=== PATIENT | male | born 1975 | race Caucasian/White ===

== ENCOUNTER 2017-10-10 18:36 | Emergency (ER) | payer OTHER, MEDICAID ==
--- NOTE | 2017-10-10 18:41 | EDPHY ---
H & P Source: Patient Exam Limitations: No limitations - Medical/Surgical History Hx Asthma: No Hx Chronic Respiratory Disease: No Hx Diabetes: No Hx Cardiac Disease: No Hx Renal Disease: No Hx Cirrhosis: No Hx Alcoholism: No Hx HIV/AIDS: No Hx Splenectomy or Spleen Trauma: No Other PMH: Schizoeffective disorder - Social History Smoking Status: Heavy smoker Time Seen by Provider: 10/10/17 18:40 HPI/ROS: CHIEF COMPLAINT: Failure to thrive, psychiatric disease, questionable medical- compliance HISTORY OF PRESENT ILLNESS: The patient has a history of schizoaffective disorder and is brought into the emergency department on M1 psychiatric hold. The patient is disheveled, frail and disorganized. The patient is unable to provide significant history. He states he is on no prescription psychiatric medications and uses only medical marijuana for treatment of this condition. The patient denies any history of trauma. He denies fever, cough or congestion. The patient denies additional acute complaints. REVIEW OF SYSTEMS: A comprehensive 10 point review of systems is otherwise negative aside from elements mentioned in the history of present illness. (William Landry) - Physical Exam Exam: General Appearance: Thin, cachectic, disheveled Eyes: Pupils equal and round no pallor or injection ENT, Mouth: Mucous membranes moist Respiratory: There are no retractions, lungs are clear to auscultation Cardiovascular: Regular rate and rhythm Gastrointestinal: Abdomen is soft and nontender, no masses, bowel sounds normal Neurological: 5/5 strength all 4 extremities Skin: Warm and dry, no rashes Musculoskeletal: Neck is supple nontender Extremities: symmetrical, full range of motion Psychiatric: Patient is oriented X 3, delusional, disorganized (William Landry) Constitutional: Initial Vital Signs Temperature (C) 37.2 C 10/10/17 18:55 Heart Rate 112 H 10/10/17 18:55 Respiratory Rate 16 10/10/17 18:55 Blood Pressure 159/131 H 10/10/17 18:55 O2 Sat (%) 95 10/10/17 18:55 O2 Delivery Mode Room Air Allergies/Adverse Reactions: No Known Allergies Allergy (Verified 02/11/15 21:43) Home Medications: Medication Instructions Recorded OLANZapine [Zyprexa Zydis] 60 mg PO DAILY@0700 02/12/15 Amoxicillin [Amoxil Susp (*)] 500 mg PO Q8 #1 btl 02/15/15 Bacitracin Zinc [Bacitracin 1 john TP BID #1 oint 02/15/15 Ointment Tube] Hydrocod/APAP 7.5/325 in 15Ml 15 ml PO Q4 PRN 7 Days udcup 02/15/15 [Hycet Oral Liquid (*) 7.5MG-325MG/15ML] Medical Decision Making ED Course/Re-evaluation: The patient presents to the ED with delusional disorganized thoughts in the setting of known schizoaffective disorder and likely not being on any current prescription medications. The patient was somewhat aggressive and agitated. He did received 5 mg of oral Zyprexa. Screening laboratory studies have been sent. (William Landry) I took over care of this patient at 7:00 a.m.. This patient has a history of schizoaffective disorder. He is acutely delusional. He is currently on an M1 hold. He is to be admitted. Destination for admission pending at this time. 8:20 a.m., patient accepted for transfer to [facility] under the care of psychiatrist Dr. Xavier Bustamante. I have filled out the appropriate transfer paperwork. The patient's remaining emergency department course under my care has been uneventful. He was transferred in stable condition. (Jose White) Other Provider: 10/10/17 22:30 care assumed by me from Dr. Landry pending mental health evaluation. 0400 patient has been seen by the mental health dandy tender. They feel that he is suitable for inpatient placement. They will look for a suitable facility. 0700 patient signed out to Dr. White pending placement. He has been resting comfortably. I have had no issues with care this patient overnight. ( Rene Ervin) - Data Points Laboratory Results: Laboratory Results 10/10/17 19:12 10/10/17 18:50 10/11/17 00:58 Urine Opiates Screen NEGATIVE (NEGATIVE) Urine Barbiturates NEGATIVE (NEGATIVE) Ur Phencyclidine Scrn NEGATIVE (NEGATIVE) Ur Amphetamine Screen NEGATIVE (NEGATIVE) U Benzodiazepines Scrn NEGATIVE (NEGATIVE) Urine Cocaine Screen NEGATIVE (NEGATIVE) U Marijuana (THC) Screen NON-NEGATIVE H (NEGATIVE) Medications Given: Discontinued Medications Sodium Chloride (Ns) 1,000 mls @ 0 mls/hr IV EDNOW ONE; Wide Open PRN Reason: Protocol Stop: 10/10/17 22:31 Last Admin: 10/10/17 22:55 Dose: 1,000 mls Sodium Chloride (Ns) 1,000 mls @ 0 mls/hr IV ONCE ONE PRN Reason: Wide Open Stop: 10/10/17 23:53 Last Admin: 10/10/17 23:52 Dose: 1,000 mls Olanzapine (Zyprexa Zydis) 5 mg PO EDNOW ONE Stop: 10/10/17 19:13 Last Admin: 10/10/17 19:28 Dose: 5 mg Departure - Departure Disposition: Other Psych, Not Shay Clinical Impression: Schizoaffective disorder, Delusional disorder Referrals: Hector Romero MD [Primary Care Provider] - As per Instructions
[2017-10-10] MEDS ORDERED: OLANZapine DISINTEGR 5 MG TAB PO ONE (19:12)
[2017-10-10 19:32] LABS: PLATELET COUNT 272 10^3/uL (150-400)
[2017-10-10] MEDS ORDERED: NS 1,000 ML IV ONE ×2 (22:30→23:52)
[2017-10-11 11:10] VITALS: BP 99/60
== END 2017-10-11 11:09 ==
LOC: EEVIPCON 18:36
DX: F25.9 Schizoaffective disorder, unspecified (principal); F22 Delusional disorders; F17.200 Nicotine dependence, unspecified, uncomplicated; E86.9 Volume depletion, unspecified
CPT/HCPCS: 80305; G0480

== ENCOUNTER 2017-11-08 18:39 | Emergency (ER) | payer OTHER ==
--- NOTE | 2017-11-08 18:49 | EDPHY ---
H & P Source: Patient, Police Exam Limitations: Clinical condition - Medical/Surgical History Hx Asthma: No Hx Chronic Respiratory Disease: No Hx Diabetes: No Hx Cardiac Disease: No Hx Renal Disease: No Hx Cirrhosis: No Hx Alcoholism: No Hx HIV/AIDS: No Hx Splenectomy or Spleen Trauma: No Other PMH: Schizoeffective disorder - Family History Significant Family History: No pertinent family hx - Social History Smoking Status: Heavy smoker Alcohol Use: Sober Drug Use: None Time Seen by Provider: 11/08/17 18:42 HPI/ROS: CHIEF COMPLAINT: Gravely disabled HISTORY OF PRESENT ILLNESS: Patient is a 42-year-old man who police were called for a wellness check. He is extremely disheveled and foul smelling. He has a history of schizophrenia and is not taking his medications. They had mental health evaluate him and placed him on a hold. He is delusional and hallucinating. He is cooperative and answers most questions appropriately. He denies pain or injury. He denies recent fevers or illness. He presented in a similar fashion 1 month ago and was admitted to [facility] psychiatric unit at that time. REVIEW OF SYSTEMS: Constitutional: denies: chills, fever, recent illness, recent injury EENTM: denies: blurred vision, double vision, nose congestion Respiratory: denies: cough, shortness of breath Cardiac: denies: chest pain, irregular heart rate, lightheadedness, palpitations Gastrointestinal/Abdominal: denies: abdominal pain, diarrhea, nausea, vomiting, blood streaked stools Genitourinary: denies: dysuria, frequency, hematuria, pain Musculoskeletal: denies: joint pain, muscle pain Skin: denies: lesions, rash, jaundice, bruising Neurological: denies: headache, numbness, paresthesia, tingling, dizziness, weakness Hematologic/Lymphatic: denies: blood clots, easy bleeding, easy bruising Immunologic/allergic: denies: HIV/AIDS, transplant EXAM: GENERAL: Extremely disheveled, no acute distress, thin HEAD: Atraumatic, normocephalic. EYES: Pupils equal round and reactive to light, extraocular movements intact, sclera anicteric, conjunctiva are normal. ENT: Cyst to left cheek which she states has been there for several years, nontender, not erythematous. TMs normal, nares patent, oropharynx clear without exudates. Moist mucous membranes. NECK: Normal range of motion, supple without lymphadenopathy or JVD. LUNGS: Breath sounds clear to auscultation bilaterally and equal. No wheezes rales or rhonchi. HEART: Regular rate and rhythm without murmurs, rubs or gallops. ABDOMEN: Soft, nontender, normoactive bowel sounds. No guarding, no rebound. No masses appreciated. BACK: No CVA tenderness, no spinal tenderness, step-offs or deformities EXTREMITIES: Normal range of motion, no pitting or edema. No clubbing or cyanosis. NEUROLOGICAL: Cranial nerves II through XII grossly intact. Normal speech, normal gait. 5/5 strength, normal movement in all extremities, normal sensation PSYCH: Answers questions appropriately, SKIN: Warm, dry, normal turgor, no visible rashes or lesions. (Lexx Choudhury) Constitutional: Initial Vital Signs Temperature (C) 36.7 C 11/08/17 18:50 Heart Rate 88 11/08/17 18:50 Respiratory Rate 18 11/08/17 18:50 Blood Pressure 118/88 H 11/08/17 18:50 O2 Sat (%) 96 11/08/17 18:50 O2 Delivery Mode Room Air O2 (L/minute) 97 Allergies/Adverse Reactions: No Known Allergies Allergy (Verified 11/08/17 19:52) Home Medications: Medication Instructions Recorded OLANZapine [Zyprexa Zydis] 60 mg PO DAILY@0700 02/12/15 Amoxicillin [Amoxil Susp (*)] 500 mg PO Q8 #1 btl 02/15/15 Bacitracin Zinc [Bacitracin 1 john TP BID #1 oint 02/15/15 Ointment Tube] Hydrocod/APAP 7.5/325 in 15Ml 15 ml PO Q4 PRN 7 Days udcup 02/15/15 [Hycet Oral Liquid (*) 7.5MG-325MG/15ML] Medical Decision Making ED Course/Re-evaluation: 2300: Patient been evaluated by mental health. They would like to seek inpatient placement. Will perform bed search at this time for inpatient psychiatric hospitalization. (Jarret Nicholas) Differential Diagnosis: Partial list of the Differential diagnosis considered include but were not limited to; schizophrenia, substance abuse and although unlikely based on the history and physical exam, I also considered head injury, infection. (Lexx Choudhury) Other Provider: [address] Nicholas pending placement. (Rene Ervin) - Data Points Laboratory Results: Laboratory Results 11/08/17 19:54 11/08/17 19:54 Medications Given: Discontinued Medications Nicotine (Nicoderm Cq) 21 mg TD EDNOW ONE Stop: 11/09/17 01:40 Last Admin: 11/09/17 02:08 Dose: Not Given Departure - Departure Disposition: Other Psych, Not Shay Clinical Impression: Acute psychosis, Polysubstance abuse Condition: Fair Referrals: Hector Romero MD [Primary Care Provider] - As per Instructions
[2017-11-08 20:10] LABS: PLATELET COUNT 348 10^3/uL (150-400)
[2017-11-09] MEDS ORDERED: NICOTINE 21 MG/24 HR PATCH TD ONE (01:39)
[2017-11-09 14:46] VITALS: BP 105/69
== END 2017-11-09 14:46 ==
LOC: EEVIPCON 18:39
DX: F23 Brief psychotic disorder (principal); F19.10 Other psychoactive substance abuse, uncomplicated; F17.200 Nicotine dependence, unspecified, uncomplicated
CPT/HCPCS: 80305; G0480

== ENCOUNTER 2018-01-26 15:09 | Inpatient (IN) | payer OTHER, MEDICAID ==
--- NOTE | 2018-01-26 15:19 | EDPHY ---
H & P Time Seen by Provider: 01/26/18 15:14 HPI/ROS: CHIEF COMPLAINT: Court-ordered mental health evaluation HISTORY OF PRESENT ILLNESS: 42-year-old male arrives with law enforcement for court-ordered mental health evaluation. History of schizoaffective disorder bipolar type, history of cannabis use disorder, history of non adherence to medication treatment plan. He denies suicidal homicidal ideation. He has no complaints of pain or discomfort. Denies trauma. Denies hallucination. REVIEW OF SYSTEMS: 10 systems reviewed and negative with the exception of the elements mentioned in the history of present illness PAST MEDICAL & SURGICAL HISTORY: Schizoaffective disorder. Cannabis use disorder SOCIAL HISTORY:Chronic cannabis use PHYSICAL EXAM (Prior to examination, patient consented to physical exam, hands were washed and my usual and customary physical exam procedures followed) 1) GENERAL: poorly kept, alert and oriented. Appears to be in no acute distress. 2) HEAD: Normocephalic, atraumatic 3) HEENT: Pupils equal, round, reactive to light bilaterally. Sclera anicteric. 4) NECK: Full range of motion, no meningeal signs. 5) LUNGS: Clear auscultation bilaterally, no wheezes, no rhonchi, no retractions. 6) HEART: Regular rate and rhythm, no murmur, no heave, no gallop. 7) ABDOMEN: No guarding, no rebound, no focal tenderness,, 8) MUSCULOSKELETAL: No peripheral edema or discoloration. 9) BACK: No obvious trauma, no visual or palpable abnormality. 10) SKIN: No rash, no petechiae. 11) Psychiatric: Patient is oriented X 3, there is no agitation. DIFFERENTIAL DIAGNOSIS: In no particular order including but not limited to medication noncompliance, schizoaffective disorder, suicidal ideation, homicidal ideation - Medical/Surgical History Hx Asthma: No Hx Chronic Respiratory Disease: No Hx Diabetes: No Hx Cardiac Disease: No Hx Renal Disease: No Hx Cirrhosis: No Hx Alcoholism: No Hx HIV/AIDS: No Hx Splenectomy or Spleen Trauma: No Other PMH: Schizoaffective disorder, hx of jaw fx - Social History Smoking Status: Heavy smoker Constitutional: Initial Vital Signs Temperature (C) 36.8 C 01/26/18 15:09 Heart Rate 76 09/19/18 15:09 Respiratory Rate 16 01/26/18 15:09 Blood Pressure 130/80 H 01/26/18 15:09 O2 Sat (%) 92 01/26/18 15:09 O2 Delivery Mode Room Air Allergies/Adverse Reactions: No Known Allergies Allergy (Verified 12/13/17 16:38) Home Medications: Medication Instructions Recorded Divalproex ER [Depakote ER 500 MG 1,500 mg PO DAILY 30 Days #90 tab 01/13/18 (*)] Medical Decision Making ED Course/Re-evaluation: 3:18 p.m.: I reviewed the patient's old medical records. He is currently on an M1 hold. I saw this patient independently based on established practice protocols. Care of patient under supervision of secondary supervising physician Dr Allan . 4:08 p.m.: Patient's sodium noted to be 123, down from level of 141 approximately 2 weeks ago. Upon speaking to the patient further he states that he drinks approximately 1-2 gal of water per day. He has not received IV fluids in the E R. Fluid restriction precautions in place in the patient's room. He is not medically cleared for psychiatric evaluation at this time will plan on admission to hospitalist service, ICU under Dr. Bryn Shepherd. Discussed with Dr. Cezar Allan. 4:16 p.m.: Consultation with Dr. Bryn Shepherd who will admit patient, request patient be started on D5 1/2 normal saline at 75 cc and have repeat sodium in 2 hours after initiation - Data Points Laboratory Results: Laboratory Results 01/26/18 15:18 01/26/18 15:18 01/26/18 01/26/18 01/26/18 15:50 15:18 15:18 WBC 10.50 10^3/uL H 10^3/uL (3.80-9.50) RBC 3.99 10^6/uL L 10^6/uL (4.40-6.38) Hgb 12.8 g/dL L g/dL (13.7-17.5) Hct 36.0 % L % (40.0-51.0) MCV 90.2 fL fL (81.5-99.8) MCH 32.1 pg pg (27.9-34.1) MCHC 35.6 g/dL g/dL (32.4-36.7) RDW 13.7 % % (11.5-15.2) Plt Count 266 10^3/uL 10^3/uL (150-400) MPV 8.0 fL L fL (8.7-11.7) Neut % (Auto) 56.0 % % (39.3-74.2) Lymph % (Auto) 33.7 % % (15.0-45.0) [place] % (Auto) 8.8 % % (4.5-13.0) Eos % (Auto) 0.1 % L % (0.6-7.6) Baso % (Auto) 0.3 % % (0.3-1.7) Nucleat RBC Rel Count 0.0 % % (0.0-0.2) Absolute Neuts (auto) 5.88 10^3/uL 10^3/uL (1.70-6.50) Absolute Lymphs (auto) 3.54 10^3/uL H 10^3/uL (1.00-3.00) Absolute Monos (auto) 0.92 10^3/uL H 10^3/uL (0.30-0.80) Absolute Eos (auto) 0.01 10^3/uL L 10^3/uL (0.03-0.40) Absolute Basos (auto) 0.03 10^3/uL 10^3/uL (0.02-0.10) Absolute Nucleated RBC 0.00 10^3/uL 10^3/uL (0-0.01) Immature Gran % 1.1 % % (0.0-1.1) Immature Gran # 0.12 10^3/uL H 10^3/uL (0.00-0.10) Sodium 123 mEq/L L mEq/L (135-145) Potassium 4.0 mEq/L mEq/L (3.3-5.0) Chloride 85 mEq/L L mEq/L (97-110) Carbon Dioxide 25 mEq/l mEq/l (22-31) Anion Gap 13 mEq/L mEq/L (8-16) BUN 8 mg/dL mg/dL (7-23) Creatinine 0.6 mg/dL L mg/dL (0.7-1.3) Estimated GFR > 60 Glucose 118 mg/dL H mg/dL (70-100) Calcium 9.2 mg/dL mg/dL (8.5-10.4) Salicylates < 1.0 mg/dL L mg/dL (2.0-20.0) Urine Opiates Screen NEGATIVE (NEGATIVE) Acetaminophen < 10 mcg/mL L mcg/mL (10-30) Urine Barbiturates NEGATIVE (NEGATIVE) Valproic Acid < 10.0 mcg/mL L mcg/mL (50.0-150.0) Ur Phencyclidine Scrn NEGATIVE (NEGATIVE) Ur Amphetamine Screen NEGATIVE (NEGATIVE) U Benzodiazepines Scrn NEGATIVE (NEGATIVE) Urine Cocaine Screen NEGATIVE (NEGATIVE) U Marijuana (THC) Screen NON-NEGATIVE H (NEGATIVE) Ethyl Alcohol < 10 mg/dL mg/dL (0-10) Departure - Departure Disposition: [facility] Clinical Impression: Nonadherence to medication, Hyponatremia Schizoaffective disorder Qualifiers: Schizoaffective disorder type: bipolar Qualified Code(s): F25.0 - Schizoaffective disorder, bipolar type Referrals: NONE *PRIMARY CARE P,. [Primary Care Provider] - As per Instructions
[2018-01-26 15:34] LABS: PLATELET COUNT 266 10^3/uL (150-400)
[2018-01-26] MEDS ORDERED: ACETAMINOPHEN 325 MG TAB PO PRN (16:58)
[2018-01-26] MEDS ORDERED: ONDANSETRON DISINTEGRATING 4 MG TAB PO PRN (16:58)
[2018-01-26] MEDS ORDERED: ONDANSETRON 4 MG/2 ML VIAL IVP PRN (16:58)
[2018-01-26] MEDS ORDERED: LORazepam 2 MG/ML INJ IVP PRN (17:00)
--- NOTE | 2018-01-26 18:03 | GHP ---
DATE OF ADMISSION: 01/26/2018 HISTORY OF PRESENT ILLNESS: The patient is a 42-year-old gentleman with history of schizophrenia and previous episodes of hyponatremia who presents to the ER on an M1 hold for court-ordered medication. Initial evaluation reveals an alert patient whose sodium was found to be 123. Our last value 10 da ys ago was 141. The patient endorses drinking a fair amount of water. He is asking to go to [employer] to get some of their sea salt. He says he drinks a fair amount of cold tap water. He does not take diuretics. He does not have a history of heart failure or cirrhosis. He is not jaundiced. He is n ot having fever, chills, cough, sputum, nausea, vomiting, diarrhea. REVIEW OF SYSTEMS: Complete 10-point review of systems conducted, negative, except as noted in the H PI. PAST MEDICAL HISTORY: 1. Schizoaffective disorder. 2. Cannabis use disorder. 3. Bipolar disorder. 4. History of mandibular fractures. SOCIAL HISTORY: He lives on [address] in [place]. He is single. He is not homeless. Drinks alcohol occasionally. Daily tobacco, smells of tobacco. FAMILY HISTORY: Reviewed and unremarkable. PHYSICAL EXAMINATION: VITAL SIGNS: Temp 36.8, blood pressure 130/80, pulse 76, breathing 16 times a minute, 92% on room air. GENERAL: In no acute distress. HEENT: Sclerae anicteric. Oropharynx cl ear. Mucous membranes moist. NECK: Supple without lymphadenopathy or JVD. LUNGS: Clear to auscul tation bilaterally. HEART: S1, S2. ABDOMEN: Soft, nontender, nondistended. LOWER EXTREMITIES: W ithout edema. Calves nontender. SKIN: Without rash. NEUROLOGIC: Nonfocal. PSYCHIATRIC: The pat ient is conversant. He has poor grooming. Smells of tobacco. His feet are dirty. I discussed the case . LABORATORY DATA: Sodium 123, potassium 4, chloride 85, bicarb 25, BUN 13, creatinine 0.6, glucose is 118. White count 10.5, hematocrit 36, platelets are 266,000. ASSESSMENT/PLAN: 42-year-old gentleman with hyponatremia. 1. Hyponatremia. This is almost certainly water intoxication. Patient is currently in the psych ro om without access to water. Typically, these patients rise rather rapidly once their access to water is diminished. I will start some hypotonic fluids at half-normal saline at 75 an hour x1 L. I will follow his sodium q.3. if his sodium does not rise immediately, we will send some urine studies. Jose whitaker is euvolemic. 2. Schizoaffective disorder. I will continue his medicines. I have written him for some p.r.nRenetta goetz. 3. Tobacco use. I will write him for nicotine patch. 4. Prophylaxis. The patient is low risk. DISPOSITION: Inpatient status. /[id number]/MODL
[2018-01-26] MEDS: NICOTINE 21 MG/24 HR PATCH TD SCH (20:06)
[2018-01-26] MEDS: D5W 1/2 NS 1,000 ML IV SCH (20:26)
[2018-01-27] MEDS ORDERED: DESMOPRESSIN ACETATE 4 MCG/ML INJ SC ONE (02:18)
--- NOTE | 2018-01-27 02:22 | HOSPPROG ---
Hospitalist Progress Note Assessment/Plan: XC: Na 126>130 at start of my shift. I encouraged patient to drink free water, of which he drank about 500 mLs. Despite this, Na to 135 on next check. This represents 12 mEq increase over 9 hour period, which is significantly beyond goal. I will order DDAVP 2 mcg SQ and start hypotonic saline infusion at 75 mls/ hr. Will continue q4h checks. Objective: Vital Signs Temp Pulse Resp BP Pulse Ox 36.4 C 53 L 16 121/78 H 96 01/26/18 22:00 01/27/18 02:00 01/27/18 02:00 01/27/18 02:00 01/27/18 02:00 Laboratory Results 01/27/18 00:55 01/25/18 01/26/18 01/27/18 05:59 05:59 05:59 Intake Total 300 Balance 300 ICD10 Worksheet Patient Problems: Problems Problem Status Onset Hyponatremia Acute Nonadherence to medication Acute Schizoaffective disorder Acute Cannabis use disorder, severe, in controlled environment Acute Cannabis withdrawal Acute Patient non adherence Acute Schizoaffective disorder, bipolar type Chronic
[2018-01-27] MEDS ORDERED: D5W 1/2 NS 1,000 ML IV SCH (02:30)
[2018-01-27] MEDS: D5W 1/2 NS 1,000 ML IV SCH (02:38)
--- NOTE | 2018-01-27 05:58 | PDMN ---
Medical Necessity Medical necessity: Pt meets INPT criteria per MD as of 01/26/18 and MCG Systemic or Infectious Condition GRG (est. LOS >2 MN for eval/mgmt of hyponatremia - sodium 123; requiring IVF, DDAVP, q4hr checks; hx schizophrenia, on M1 hold for court-ordered medication).
[2018-01-27] MEDS: NICOTINE 21 MG/24 HR PATCH TD SCH (07:49)
[2018-01-27] MEDS ORDERED: DIVALPROEX ER 500 MG TAB PO SCH (09:00)
[2018-01-27] MEDS ORDERED: PALIPERIDONE 9 MG TAB.ER PO SCH (09:00)
--- NOTE | 2018-01-27 11:45 | HOSPPROG ---
Hospitalist Progress Note Assessment/Plan: 42 YO male with hx of Schizophrenia and Bipolar who was per reports was brought into the ER for violation of court ordered medication administration and found to have a Na of 123. He is not the best historian #Hyponatremia -appears sub acute -Etiology is likely due to water intoxication -Corrected very quickly and therefore 1/2 NS and DDAVP was given -this morning Na is 136 and 131 -will stop 1/2NS today and recheck Na in a few hours -Anticipate that he will be medically stable today #Schizophrenia, Bipolar, and court ordered medication with reported violation of order -CM to clarify court order -He is not actively on an M1 hold and we will determine if he needs one -on Depakote and Invega #Cannabis use disorder #tobacco abuse disorder -on NRT Total critical care time is 32 mins due to significant hyponatremia and accelerated correction. Monitoring Na levels closely. Anticipate medical stable this afternoon pending Na stabilization Subjective: not the best historian but no focal neurological deficits. no cp or sob. afebrile Objective: Vital Signs Temp Pulse Resp BP Pulse Ox 37.9 C 54 L 19 113/73 95 01/27/18 07:34 01/27/18 10:00 01/27/18 10:00 01/27/18 07:34 01/27/18 10:00 Laboratory Results 01/27/18 09:21 01/26/18 01/27/18 01/28/18 05:59 05:59 05:59 Intake Total 950 Balance 950 - Physical Exam Constitutional: no apparent distress Eyes: PERRL Ears, Nose, Mouth, Throat: moist mucous membranes, hearing normal Cardiovascular: regular rate and rhythym Respiratory: no respiratory distress Gastrointestinal: normoactive bowel sounds, soft, non-tender abdomen Genitourinary: no bladder fullness Skin: warm Neurologic: AAOx3 Psychiatric: interacting appropriately, not anxious, not encephalopathic Lymph, Heme, Immunologic: no cervical LAD ICD10 Worksheet Patient Problems: Problems Problem Status Onset Hyponatremia Acute Nonadherence to medication Acute Schizoaffective disorder Acute Cannabis use disorder, severe, in controlled environment Acute Cannabis withdrawal Acute Patient non adherence Acute Schizoaffective disorder, bipolar type Chronic
[2018-01-27 15:35] VITALS: BP 122/74
== END 2018-01-27 21:27 | disposition left against medical advice (07) | DRG 641 ==
LOC: OBSVTOIN 16:11 → F2N 20:30
PROVIDERS: ADMIT Internal Medicine; ATTEND Internal Medicine
DX: E87.1 Hypo-osmolality and hyponatremia (principal); F25.0 Schizoaffective disorder, bipolar type; F12.90 Cannabis use, unspecified, uncomplicated
CPT/HCPCS: 80305; G0480; J2597

== ENCOUNTER 2018-03-21 17:05 | Emergency (ER) | payer OTHER, MEDICAID ==
--- NOTE | 2018-03-21 17:19 | EDPHY ---
H & P Source: Patient Exam Limitations: No limitations - Medical/Surgical History Hx Asthma: No Hx Chronic Respiratory Disease: No Hx Diabetes: No Hx Cardiac Disease: No Hx Renal Disease: No Hx Cirrhosis: No Hx Alcoholism: No Hx HIV/AIDS: No Hx Splenectomy or Spleen Trauma: No Other PMH: Schizoaffective disorder, hyponatremia, malnutrition - Family History Significant Family History: No pertinent family hx - Social History Smoking Status: Heavy smoker Alcohol Use: Sober Time Seen by Provider: 03/21/18 17:08 HPI/ROS: CHIEF COMPLAINT: M1 hold HISTORY OF PRESENT ILLNESS: The patient is a 42-year-old man with a history of schizoaffective disorder who is a patient of [facility]. His therapist called for a well check because the patient had missed several appointments. The food chemist found his department completely in disarray and the patient is disheveled is starving himself. He has a history of not eating because he is paranoid about food. She called police and placed him on a hold and brought him here for gravely disabled. The patient reports to me that he is not taking any medication. He denies recent alcohol use. He did smoke marijuana today. He was here under similar conditions a month ago and was found to be hyponatremic and admit to the hospital and eventually left AMA. Severity: Moderate Modifying factors: None REVIEW OF SYSTEMS: Constitutional: denies: chills, fever, recent illness, recent injury EENTM: denies: blurred vision, double vision, nose congestion Respiratory: denies: cough, shortness of breath Cardiac: denies: chest pain, irregular heart rate, lightheadedness, palpitations Gastrointestinal/Abdominal: denies: abdominal pain, diarrhea, nausea, vomiting, blood streaked stools Genitourinary: denies: dysuria, frequency, hematuria, pain Musculoskeletal: denies: joint pain, muscle pain Skin: denies: lesions, rash, jaundice, bruising Neurological: denies: headache, numbness, paresthesia, tingling, dizziness, weakness Hematologic/Lymphatic: denies: blood clots, easy bleeding, easy bruising Immunologic/allergic: denies: HIV/AIDS, transplant 10 systems reviewed and negative except as noted EXAM: GENERAL: Disheveled, thin, taking office clothing HEAD: Atraumatic, normocephalic. EYES: Pupils equal round and reactive to light, extraocular movements intact, sclera anicteric, conjunctiva are normal. ENT: TMs normal, nares patent, oropharynx clear without exudates. Moist mucous membranes. NECK: Normal range of motion, supple without lymphadenopathy or JVD. LUNGS: Breath sounds clear to auscultation bilaterally and equal. No wheezes rales or rhonchi. HEART: Regular rate and rhythm without murmurs, rubs or gallops. ABDOMEN: Soft, nontender, normoactive bowel sounds. No guarding, no rebound. No masses appreciated. BACK: No CVA tenderness, no spinal tenderness, step-offs or deformities EXTREMITIES: Normal range of motion, no pitting or edema. No clubbing or cyanosis. NEUROLOGICAL: Cranial nerves II through XII grossly intact. Normal speech, normal gait. 5/5 strength, normal movement in all extremities, normal sensation , normal reflexes PSYCH: Answers questions appropriately, normal affect SKIN: Warm, dry, normal turgor, no visible rashes or lesions. (Lexx Choudhury) Constitutional: Initial Vital Signs Temperature (C) 36.4 C 03/21/18 17:13 Heart Rate 126 H 03/21/18 17:13 Respiratory Rate 18 03/21/18 17:13 Blood Pressure 128/76 H 03/21/18 17:13 O2 Sat (%) 95 03/21/18 17:13 O2 Delivery Mode Room Air Allergies/Adverse Reactions: No Known Allergies Allergy (Verified 12/13/17 16:38) Home Medications: Medication Instructions Recorded Divalproex ER [Depakote ER 500 MG 1,500 mg PO DAILY 30 Days #90 tab 01/13/18 (*)] Paliperidone [Invega 9mg ER (*)] 9 mg PO DAILY 01/26/18 Medical Decision Making ED Course/Re-evaluation: 6:18 a.m.- The patient has been stable throughout my shift. He was seen by Xavier the psychiatric food chemist this morning. He has been accepted to [facility] by Dr. Ana Laura Basurto. I have completed the EMTALA form. (Jaqui Ac) 10:30 p.m. mental health this planning to evaluate. Patient has not yet provided a urine sample. Care transferred to Dr. Ac at shift change. He is not hyponatremic. (Lexx Choudhury) Differential Diagnosis: Partial list of the Differential diagnosis considered include but were not limited to; psychosis, hallucinations, paranoia, depression and although unlikely based on the history and physical exam, I also considered substance abuse, infection, hyponatremia. (Lexx Choudhury) - Data Points Laboratory Results: Laboratory Results 03/21/18 17:10 03/21/18 17:10 Departure - Departure Disposition: Other Psych, Not [facility] Clinical Impression: Schizoaffective disorder, bipolar type Condition: Fair Referrals: NONE *PRIMARY CARE P,. [Primary Care Provider] - As per Instructions
[2018-03-21 18:00] LABS: PLATELET COUNT 333 10^3/uL (150-400)
--- NOTE | 2018-03-22 06:23 | ASMTTCLDSP ---
[facility] Discharge Disposition Disposition: Answers: Transfer Disposition Notes: Notes: [facility] staff secured placement arrangements for pt to be transferred to [facility] under Dr. Ana Laura Basurto. Discharge Concerns/Recommendations: Notes: In consultation with [facility] ED physician, Jaqui Ac MD, Dr. Ac concurred that pt appears to meet 27-65 criteria requiring psychiatric hospitalization as pt appears to be gravely disabled due to a mental illness conditiion. Was patient given the Answers: Not applicable Inpatient [facility] Prohibited Belongings List while in the ED? Type of Hold: Answers: M1/72-hour Hold Hold initiated by: Answers: Other Notes: [facility] staff For Transfers, Accepting [facility] Facility: For Transfers, Accepting Ana Laura Basurto MD Psychiatrist: For Transfers, Reason [facility] arranged for transfer. Patient is Being Transferred: Date Signed: 03/22/2018 06:23 AM Electronically Signed By:Jamal Carballo
[2018-03-22 07:19] VITALS: BP 98/62
== END 2018-03-22 09:05 ==
DX: F20.0 Paranoid schizophrenia (principal); E44.0 Moderate protein-calorie malnutrition
CPT/HCPCS: 80305; G0480

== ENCOUNTER 2018-08-19 14:11 | Inpatient (IN) | payer OTHER ==
--- NOTE | 2018-08-19 14:11 | EDPHY ---
H & P Time Seen by Provider: 08/19/18 14:27 Constitutional: Initial Vital Signs Temperature (C) 36.5 C 08/19/18 14:15 Heart Rate 98 08/19/18 14:15 Respiratory Rate 18 08/19/18 14:15 Blood Pressure 164/96 H 08/19/18 14:15 O2 Sat (%) 97 08/19/18 14:15 O2 Delivery Mode Room Air Allergies/Adverse Reactions: No Known Allergies Allergy (Verified 08/19/18 14:38) Home Medications: Medication Instructions Recorded Divalproex ER [Depakote ER 500 MG 1,500 mg PO DAILY 30 Days #90 tab 01/13/18 (*)] Paliperidone [Invega 9mg ER (*)] 9 mg PO DAILY 01/26/18 Medical Decision Making ED Course/Re-evaluation: CHIEF COMPLAINT: Psychiatric evaluation HISTORY OF PRESENT ILLNESS: The patient is a 43 y/o male with a history of schizoaffective disorder, arriving via EMS on an M1 hold for schizophrenia. Per EMS and BPD the patient has disorganized thought and states he is unsure if he ate today or paid his rent. He reports he hasn't showered since March. He denies taking his medications. He has aggressive language and speaks about guns often. No homicidal or suicidal ideations. REVIEW OF SYSTEMS: A comprehensive 10 system review of systems is otherwise negative aside from elements mentioned in the history of present illness and medical decision making. PHYSICAL EXAM: General Appearance: Alert, well hydrated, and non-toxic appearing. Head: Atraumatic without scalp tenderness or obvious injury Eyes: Pupils equal, round, reactive to light and accommodation, EOMI, no trauma , no injection. Ears: Clear bilaterally, no perforation, normal landmarks Nose: Atraumatic, no rhinorrhea, clear. Throat: There is no erythema or exudates, no lesions, normal tonsils, mucus membranes moist. Neck: Supple, 2+ carotid upstroke, nontender, no lymphadenopathy. Respiratory: No retractions, no distress, no wheezes, and no accessory muscle use. Lungs are clear to auscultation bilaterally. Cardiovascular: Regular rate and rhythm, no murmurs, rubs, or gallops. Bilateral carotid, radial, dorsalis pedis, and posterior tibial pulses intact. Good capillary refill all extremities. Gastrointestinal: Abdomen is soft, nontender, non-distended, no masses, no rebound, no guarding, no peritoneal signs. Musculoskeletal: Normal active ROM of all extremities, atraumatic. Neurological: Alert, appropriate, and interactive. The patient has normal DTRs and non-focal cranial nerves, motor, sensory, and cerebellar exam. Skin: No rashes, good turgor, no nodules on palpation. Psych: Angry and sarcastic attitude, illogical though, over-talkative, thinks people are watching and has ideas of grandeur. No homicidal or suicidal ideations. Past medical history: Schizoaffective disorder Past surgical history: Unknown Family history: Unknown Social history: Singe, not employed, lives is [place]. DIFFERENTIAL DIAGNOSIS: The differential diagnosis for the patient's psychosis included but was not limited to schizoaffective disorder, functional and major depression, situational depression, medication side effect, drugs, and alcohol abuse. MEDICAL DECISION MAKING: The patient is a 43 y/o male with a history of schizoaffective disorder, arriving via EMS on an M1 hold for schizophrenia. Per EMS and BPD the patient has disorganized thought and states he is unsure if he ate today or paid his rent. He reports he hasn't showered since March. He thinks that people are watching him and has ideas or grandeur. He denies homicidal or suicidal ideations. He agrees to having a blood draw today. Patient is in no acute distress and is hemodynamically stable. We are awaiting psychiatric team's evaluation. Patient has known history of psychiatric disorders and is here for evaluation. 1500: Patient care has been turned over to Dr. Garcia at shift change. Mental health eval pending. (Cezar Allan) 1300: I assumed care of this patient at shift change. He has a history of schizophrenia and is on an M1 hold for acute psychosis. Evaluation pending. 1819: increased agitation. Zyprexa 10mg IM given. 2114: Accepted to [facility], EMTALA completed. (Melanie Garcia) - Data Points Laboratory Results: Laboratory Results 08/19/18 14:56 08/19/18 14:56 08/19/18 08/19/18 08/19/18 14:56 14:56 14:22 WBC 13.53 10^3/uL H 10^3/uL (3.80-9.50) RBC 4.62 10^6/uL 10^6/uL (4.40-6.38) Hgb 14.7 g/dL g/dL (13.7-17.5) Hct 42.6 % % (40.0-51.0) MCV 92.2 fL fL (81.5-99.8) MCH 31.8 pg pg (27.9-34.1) MCHC 34.5 g/dL g/dL (32.4-36.7) RDW 13.7 % % (11.5-15.2) Plt Count 275 10^3/uL 10^3/uL (150-400) MPV 8.1 fL L fL (8.7-11.7) Neut % (Auto) 75.5 % H % (39.3-74.2) Lymph % (Auto) 16.6 % % (15.0-45.0) [place] % (Auto) 7.2 % % (4.5-13.0) Eos % (Auto) 0.0 % L % (0.6-7.6) Baso % (Auto) 0.3 % % (0.3-1.7) Nucleat RBC Rel Count 0.0 % % (0.0-0.2) Absolute Neuts (auto) 10.21 10^3/uL H 10^3/uL (1.70-6.50) Absolute Lymphs (auto) 2.25 10^3/uL 10^3/uL (1.00-3.00) Absolute Monos (auto) 0.97 10^3/uL H 10^3/uL (0.30-0.80) Absolute Eos (auto) 0.00 10^3/uL L 10^3/uL (0.03-0.40) Absolute Basos (auto) 0.04 10^3/uL 10^3/uL (0.02-0.10) Absolute Nucleated RBC 0.00 10^3/uL 10^3/uL (0-0.01) Immature Gran % 0.4 % % (0.0-1.1) Immature Gran # 0.06 10^3/uL 10^3/uL (0.00-0.10) Sodium 135 mEq/L mEq/L (135-145) Potassium 3.7 mEq/L mEq/L (3.5-5.2) Chloride 100 mEq/L mEq/L (97-110) Carbon Dioxide 27 mEq/l mEq/l (22-31) Anion Gap 8 mEq/L mEq/L (6-14) BUN 14 mg/dL mg/dL (7-23) Creatinine 0.6 mg/dL L mg/dL (0.7-1.3) Estimated GFR > 60 Glucose 96 mg/dL mg/dL (70-100) Calcium 8.9 mg/dL mg/dL (8.5-10.4) Urine Opiates Screen NEGATIVE (NEGATIVE) Urine Barbiturates NEGATIVE (NEGATIVE) Ur Phencyclidine Scrn NEGATIVE (NEGATIVE) Ur Amphetamine Screen NEGATIVE (NEGATIVE) U Benzodiazepines Scrn NEGATIVE (NEGATIVE) Urine Cocaine Screen NEGATIVE (NEGATIVE) U Marijuana (THC) Screen NON-NEGATIVE H (NEGATIVE) Ethyl Alcohol < 10 mg/dL mg/dL (0-10) Medications Given: Discontinued Medications Lorazepam (Ativan Injection) 2 mg IM EDNOW ONE Stop: 08/19/18 18:36 Last Admin: 08/19/18 18:40 Dose: 2 mg Nicotine (Nicoderm Cq) 21 mg TD EDNOW ONE Stop: 08/19/18 18:19 Last Admin: 08/19/18 18:35 Dose: 21 mg Olanzapine (Zyprexa Injection) 10 mg IM EDNOW ONE Stop: 08/19/18 18:24 Last Admin: 08/19/18 18:23 Dose: 10 mg Departure - Departure Disposition: [facility] IP Clinical Impression: Schizoaffective disorder, bipolar type Condition: Fair Referrals: NONE *PRIMARY CARE P,. [Primary Care Provider] - As per Instructions Report Scribed for: Cezar Allan Report Scribed by: Lamar Swain Date of Report: 08/19/18 Time of Report: 14:27
[2018-08-19 15:04] LABS: PLATELET COUNT 275 10^3/uL (150-400)
[2018-08-19] MEDS ORDERED: NICOTINE 21 MG/24 HR PATCH TD ONE (18:18)
[2018-08-19] MEDS ORDERED: OLANZapine 10 MG/2 ML VIAL ONE (18:21)
[2018-08-19] MEDS ORDERED: OLANZapine 10 MG/2 ML VIAL IM ONE (18:23)
[2018-08-19] MEDS ORDERED: LORazepam 2 MG/ML INJ IM ONE (18:35)
--- NOTE | 2018-08-19 21:03 | ASMTTLCEVL ---
TLC Evaluation - Basic Information Evaluation Start Date and 08/19/2018 04:00 PM Time Hospital Status Answers: M1 Hold 72-hr M1 Hold Start Date 08/19/2018 01:00 PM and Time Patient statement Notes: "I got her by police because I didn't come in for my shot I only use THC" Narrative Notes: PT 43 YO male with a history of schizoaffective bipolar type disorder, arriving via EMS on an M1 hold for schizophrenia. Per EMS and BPD the patient has disorganized thought and states he is unsure if he ate today or paid his rent. He reports he hasn't showered since March. He denies taking his medications using THC daily instead. He has aggressive language and speaks about guns often but has No homicidal or suicidal ideations. Per M1 Hold written by [facility] Acid Supervisor Som meets criteria for grave disability due to disorganization as a result of unmanaged schizophrenia, he is unsure if he has eaten today, indicates he has not paid his rent, he is not taking his medications as prescribed, he is 10 days overdue or his injection, He not has not showered since March. His apartment is in disarray; His language is increasingly aggressive and speaks often guns. PT was given 10mg of zyprexa and ativan Showered in the ED (for 30 minutes obsessively scrubbing) Per [facility] Clinician Note on 07/22/18 - the plan was continue invega sustena 156mg q3wks.This is his 4th injection at this frequency. Diagnosis History Notes: Schizoaffective Disorder, Bipolar Type 295.70 (F25.0) Prior suicide attempts Notes: None reported Prior hospitalizations Notes: Pt has multiple hospitalizations with his most recently at [facility] 3 in December 2017 and at [facility] in November 2017 where he was placed on a STC. Prior to this, pt was hospitalized at [facility] in October 2017. Pt was hospitalized at in 12/2013, 05/2013 and in 09/2010. Treatment Responses Notes: Per [facility] DC SUMMARY FROM JAN INPT STAY [facility] Patient Name: GURMEET JASSO Rpt#: [id number] Unit Number: [id number] Attending/ER Physician: Alexis Livingston MD Patient Type: DIS IN Adm Date/Source: 01/07/18 EMR Discharge Date: 01/13/18 Primary Carrier: MEDICARE PSYCH INPATIENT [facility] DC SUMMARY REASON FOR ADMISSION: From the ED note dated 01/07/2018, patient has a history of multiple hospitalizations due to nonadherence to medication treatment. Patient has a history of schizoaffective disorder bipolar type and cannabis use disorder. Patient has been noncompliant with treatment plan and followup with court-ordered medications after his recent discharge on December 29. [facility] placed the patient on an M1 hold and patient was sent to the emergency department due to nonadherence to court-ordered medications. Patient reported no complaints. The patient denied suicidal and homicidal ideation. Patient was somewhat disorganized in his conversation and had a hard time sticking to the topic was tangential. The patient reported he was not ill or hurt. Patient was admitted involuntarily on an M1 hold due to being gravely disabled due to a mental illness with the exacerbation of symptoms due to patient's nonadherence to court-ordered medications for psychotropic treatment at [facility]. The patient was admitted for safety crisis stabilization and medication evaluation. ADMITTING DIAGNOSES: Schizoaffective disorder, bipolar type. Cannabis use disorder, severe, in a controlled environment. Cannabis withdrawal and patient nonadherence admission. ADMISSION PHYSICAL EXAM: Patient was seen for a history and physical on 01/08/2018. Patient was medically cleared for inpatient psychiatric hospitalization and treatment. For further details, please refer to H and P consult dated 01/07/2018. ADMISSION LABS: CBC from 01/07/2018 within normal limits except white blood cells were elevated at 9.74, red blood cells were low at 3.76, hemoglobin was low at 11.9, and hematocrit was low at 35.6. Eosinophils were low at 0.1 and absolute monocytes were elevated at 0.92, absolute eosinophils were low at 0.01. Chemistry from 01/07/2018 within normal limits. Hemoglobin A1c from 01/07/2018 was 5.9. Fasting lipid panel from 01/11/2018, within normal limits except triglycerides were low at 32, cholesterol was low at 100, LDL cholesterol calculated was low at 26, VLDL cholesterol was low at 6, non HDL cholesterol was low at 32. HDL cholesterol was elevated at 68, LDL/HDL ratio was low at 0.38. Toxicology screen from 01/07/2018 was negative for substances of abuse except was non-negative for THC. Valproic acid level from 01/13/2018, was 108.3 at the current dose of Depakote ER 1500 mg p.o. daily. MAJOR PROCEDURES OR TESTS: None. HOSPITAL COURSE: The most prominent symptoms and behaviors while the patient was here were disorganized thought process. Patient was illogical and nonsensical and tangential. Patient was paranoid with delusional thought content. Patient was withdrawn. Target symptoms during hospitalization: Psychosis and mood instability. Treatment modalities utilized were milieu and group therapy. Invega 9 mg p.o. daily was continued to target psychosis and mood symptoms, was tolerated with no report of side effects and with good response. Depakote ER 1500 mg p.o. q.h.s. was continued to target mood symptoms, was tolerated with no report of side effects and with good response. To improve adherence and reduce the likelihood of rehospitalization, patient was started on Invega Sustenna. Patient received first loading dose of Invega Sustenna 234 mg IM on 01/10/2018. The patient received second loading dose 156 mg IM on 01/13/2018 prior to discharge. The IM injections were tolerated with no report of side effects and with good response. Depakote ER 1500 mg was changed to daily dosing as patient is required to go to [facility] daily for the dosing of the medications with supervision and observation from Nursing to improve medication adherence. Patient has improved considerably with no signs of psychiatric symptoms and no psychiatric symptoms expressed at discharge. The patient reports he has improved since admission. States to be in stable condition. Feels safe to discharge and he contracts for safety. Patient's response to treatment has been good. There were no adverse or unexpected results of treatment. The patient was safe throughout his stay, active in treatment, engaged in groups, and was appropriate with staff. Patient met with treatment team prior to discharge to review discharge plan for ongoing treatment and outpatient recommendations for substance abuse treatment. The treatment team consensus is the patient is in stable condition and is safe to discharge today. CONDITION AT DISCHARGE: Patient is in stable condition and is no longer a danger to self or others and is not gravely disabled due to a mental illness. Patient is no longer in need of inpatient level of care and can safely and effectively be treated within the community. The patient's level of risk at time of discharge was low. MENTAL STATUS EXAM: The patient is an undernourished male, looking older than chronological age. Attire is inappropriate. Dress is casual and is disheveled and unkept. Grooming status is inappropriate and disheveled, unshaven. Ambulation is independent. Gait is normal and coordinated. Posture is normal and relaxed. Eye contact is appropriate and adequate. Motor activity is appropriate with purposeful, organized, coordinated movements with no involuntary movements noted. Attitude is cooperative and friendly. Patient appears attentive and relates well to this interviewer. Language production is spontaneous. Rate, rhythm, and volume are normal. Articulation is clear. Patient reports mood as okay with appropriate and congruent affect. Patient's thought process is linear and logical with no loose associations, tangential thought blocking, concrete thinking, or any other signs of formal thought disorder. Patient does not report suicidal, homicidal thoughts, ideas, or plans. Patient denies auditory, visual hallucinations. Patient denies delusions. Patient does not appear to be attending to internal stimuli. Patient is oriented to person, place, time, and situation. Patient's attention and concentration are fair. Patient's insight is fair. Patient's judgment is fair. There is no evidence of gross cognitive dysfunction at any point during the interview and no evidence of apparent dysfunction in recent or remote memory noted. DISCHARGE DIAGNOSES: 1. Schizoaffective disorder, bipolar type. 2. Cannabis use disorder, severe. CURRENT MEDICATIONS: Patient received second loading dose of Invega Sustenna 156 mg IM today, , 01/13/2018, prior to discharge. Patient is to continue with maintenance dosing at [facility]. Second medication is Depakote ER 1500 mg p.o. daily. The medication prescription was called into [facility] to be delivered to [facility] for med packing. The prescription for Depakote was called in for a 30-day prescription. Medications and prescriptions were reviewed with patient prior to discharge to ensure accuracy and patient understanding. DISPOSITION: Patient left hospital independently and voluntarily with plans to return to his apartment. FOLLOWUP: fruit coordinator reports the appropriate outpatient follow-up services have been established and outpatient appointments have been scheduled. The patient received written instructions with times and dates of outpatient follow-up appointments. The following follow-up recommendations were provided to the patient at discharge: Continue psychotropic medications as prescribed and attend appointments as scheduled. Report any side effects to a psychiatric outpatient provider, a primary care provider, or other health patient care secretary. Address any questions or problems concerning the psychotropic medications with a psychiatric outpatient provider, a primary care provider, or other health patient care secretary. Contact [facility] or [facility], or go to the nearest emergency room, if you are ever a danger to yourself/others, or unable to care for yourself. As soon as possible, establish a routine medication management treatment with a psychiatric provider, establish routine therapy appointments, and follow-up with a primary care provider. SUBSTANCE ABUSE BRIEF INTERVENTION: Brief intervention regarding the risks of cannabis abuse is provided to patient with goal to reduce the risk of harm that could result from the continued use of cannabis, with the general aim to investigate the problem, raise awareness of problem, develop a solution with the patient, recommend a specific change or activity, and motivate the patient toward change. Assess substance abuse behavior and give supportive advice about harm reduction, recommend a reduction in hazardous/at-risk consumption patterns, and facilitate referrals for additional specialized treatment with career education teacher. Intermediate goal is for the patient to quit use and attend a NA meetings and substance abuse treatment. Intervention focus on intermediate goals to allow for more immediate success in the treatment process to keep the patient motivated. Review following with patient: Cannabis use risks: Short-term use: impaired short-term memory, impaired motor coordination, altered judgement, in high doses paranoia and psychosis. Long-term use addiction, diminished life satisfaction and achievement, symptoms of chronic bronchitis, and increased risk of chronic psychosis disorders if predisposition to such disorders. In withdrawal anger, aggression irritability, anxiety and nervousness, decreased appetite or weight loss, restlessness, and sleep difficulties with strange dreams. LEGAL COURSE: Patient was admitted on an M1 hold for involuntary inpatient psychiatric hospitalization. Patient is also on a short-term certification and court-ordered medications. Patient did discharge today independently and voluntarily. ATTITUDE AT TIME OF DISCHARGE: The patients attitude was positive at time of discharge, and patient reports looking forward to discharging today. The patient reports he feels safe to discharge, is no longer a danger to himself or others, is in stable condition, and contracts for safety. Patient states he will continue medications as prescribed, and establish medication management treatment with an outpatient provider after discharge. Patient reports he understands the information that has been provided to him, and he understands, accepts, and agrees to psychotropic medications. Patient describes internal protective factors as the coping skills he has learned while hospitalized here, and he plans to continue to practice these coping skills after discharge. LABS AND STUDIES: There were no pending labs or studies at time. ADVANCED DIRECTIVES: There were no advance directives on file, and the patient was full code during hospitalization. The following psychotropic medication treatment informed consent and recommendations were provided to the patient at time of discharge. Patient reports he understands, accepts, and agrees to the information that has been provided. PSYCHOTROPIC MEDICATION TREATMENT INFORMED CONSENT and RECOMMENDATIONS: Review nature of condition, diagnosis, and prognosis. Review nature and purpose of psychotropic medication treatment. Review type of psychotropic medications being prescribed. Review risk and benefits of psychotropic medication treatment. Review probable length of time will need to take medications. Review risk and benefits of not undergoing psychotropic medication treatment. Review alternative treatments to psychotropic medications. Review psychotropic medications contraindications, side effects, and importance of reporting any side effects to a psychiatric provider, primary care provider, or other health patient care secretary. Review importance of her asking a psychiatric provider or primary care provider any questions or problems concerning the psychotropic medications. Review safety plan and the importance to contact [facility] or [facility], or go to the nearest emergency room, if ever a danger to yourself/others, or unable to care for yourself. Recommend upon discharge to establish routine medication management treatment with a psychiatric provider, establish routine therapy appointments, and follow-up with a primary care provider. Verify patient understands, accepts, and agrees to the information that has been provided. History of violence Notes: None Reported Therapist: Substitute Teacher-Virgen Hastings Psychiatrist: Grecia Guzman. Medications (name, dosage, route, freq uency) Notes: Per [facility] Clinician Note on 07/22/18 - the plan was continue invega sustena 156mg q3wks.This is his 4th injection at this frequency. Per Alphonse at [facility] pt was prescribed 20mg of zyprexa on August 09. Allergies/Reaction Notes: Pt reported Fur, Dust, Dander. No other known allergies. Sleep Notes: Good / Normal Appetite Notes: Per recent discharge summary his appetite is good. Medical/Surgical history Notes: Pt denied any medical problems. Substance use history (frequency, intensity, his tory, duration) Notes: Per previous P and TLC eval pt uses THC daily, denies etoh and other drugs Family composition Notes: Pt. has a sister in [place] who he has no contact with. His mother lives in [place] and is his sole family support. Pt's parents are . Need for family Answers: Yes participation in patient's care Family psychiatric/substance abuse history Notes: None family psychiatric or substance hx reported. Developmental history Notes: PT denied add or adhd, and denied any TBI's Concussions or abuse growing up. Abuse concerns Answers: None Marital status/children Notes: PT is unmarried with no children Living situation Notes: Pt currently lives in the community in an independent apartment. Sexual history/orientation Notes: Heterosexual - not active Peer support/family strengths Notes: None reported at this time. Education level/history Notes: Per previous TLC Eval - Pt. almost finished a degree in Computer Aided Design. Pt. needed one class to graduate but was never able to finish that class. 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 Notes: None Reported Legal Notes: Per previous TLC Eval - When asked about his legal hx, pt stated, Yes, I think it was to prevent a crime. Pt declined to provide any further details. Gnosticist/Spiritual Notes: Pt reported he believes in angels and likes to read the bible Leisure Notes: Pt stated he enjoys reading the bible. Collateral Notes: Collateral data obtained from [facility] INPT psyc records, previous [facility] report, previous TLC EVAL, and M1HOLD Patient's strengths Answers: Artistic/Creative/Musical (Please select at least TWO strengths): [place] Supportive Family TLC Evaluation - Mental Status Exam Appearance: Answers: Unclean Well Groomed Unkempt Disheveled Eye Contact: Answers: Intermittent Mood: Answers: Elevated Irritable Labile Affect: Answers: Agitated Angry Blunted Guarded Irritable Labile Behavior: Answers: Cooperative Aggressive Anxious Impulsive Restless Sleeping Speech: Answers: Relevant Illogical Clear Coherent Circumstantial Thought Process: Answers: Disorganized Oriented Distracted Paranoid Racing Thoughts Insight: Answers: Poor Judgement: Answers: Poor Manic Signs/Symptoms Answers: Impulsivity Irritability Mood Swings Depression Answers: Difficulty Concentrating Signs/Symptoms: Psychomotor Agitation Anxiety Signs/Symptoms Answers: Generalized Anxiety Hallucinations: Answers: None Delusions: Answers: Grandiose Mood-Congruent Paranoid Ideation Persecution Current Stage of Change Answers: Precontemplation Pt reported to have Answers: No suicidal/self-injuring ideation/behavior? Pt reported to be making Answers: No suicidal/self-injuring threats? Pt reported to have Answers: No aggression/assault ideation/behavior? Pt reported to be making Answers: No aggression/assault threats? Pt exhibits inability to Answers: Yes care for self/grave disability? Ideation/behavior is Answers: Yes chronic? Patient has a specific Answers: No plan? Ideation involves Answers: No serious/lethal intent? Ideation has Answers: Yes delusional/hallucinatory content? History of Answers: No suicidal/self-injuring ideation, behavior, or threats? History of serious Answers: No physical harm to self/others while in treatment setting? TLC Evaluation - Suicide/Homicide Risk Suicide Risk Factors: Answers: < 20 or > 40 Years of Age Agitation Global Insomnia Impulsivity Inadequate Social Support Lack of Social Support Lack/Loss of Employment Psychotic Disorder Schizophrenia Single Homicide/violence risk Answers: Paranoid Ideation factors: Current Suicidal Answers: No Ideation? Current Suicidal Ideation Answers: No in the Past Month? Current Suicidal Answers: No Ideation, Worst Ever? Suicide Internal Answers: Gnosticist Beliefs Protective Factors: Suicide External Answers: Positive Therapeutic Protective Factors: Relationships Ranking of patient's Answers: Low suicidal risk: Ranking of patient's Answers: Low homicidal risk: TLC Evaluation - Wrap-up AXIS I Diagnosis (include DSM-V and ICD-10 codes), must also be entered in [employer], which is the source of truth. Notes: PT is unable to complete BDI or BSS at this time. Schizoaffective Disorder, Bipolar Type 295.70 (F25.0) Cannabis Use Disorder, severe 304.30 (F12.20) In consultation with [facility] ED physician, Melanie Garcia MD and on-call psychiatrist, Alexis Livingston MD, both concurred that pt appears to meet 27-65 criteria requiring psychiatric hospitalization as pt appears to be at risk of harm to gravely disabled due to a mental illness condition. Pt was read the Patient Rights and Responsibilities Statement on (18:00), original placed on chart, and was given photocopy of Rights Evaluation End Date and 08/19/2018 09:00 PM Time (HH:PAT): Date Signed: 08/19/2018 09:02 PM Electronically Signed By:En Lim
--- NOTE | 2018-08-19 21:05 | ASMTTCLDSP ---
TLC Discharge Disposition Disposition: Answers: Admit Disposition Notes: Notes: In consultation with [facility] ED physician, Melanie Garcia MD and on-call psychiatrist, Alexis Livingston MD, both concurred that pt appears to meet 27-65 criteria requiring psychiatric hospitalization as pt appears to be at risk of harm to self/others/gravely disabled due to a mental illness condition. Pt was read the Patient Rights and Responsibilities Statement on (date/time), original placed on chart, and was given photocopy of Rights. For inpatient Alexis Livingston MD admission, the following psychiatrist agreed to accept patient for admission to [facility]): Type of Hold: Answers: M1/72-hour Hold Hold initiated by: Answers: Other Notes: P Credit Collections Analyst Date Signed: 08/19/2018 09:04 PM Electronically Signed By:En Lim
[2018-08-19] MEDS ORDERED: LORazepam 0.5 MG TAB PO PRN (23:13)
[2018-08-19] MEDS ORDERED: ACETAMINOPHEN 325 MG TAB PO PRN (23:13)
[2018-08-19] MEDS ORDERED: MAGNESIUM HYDROXIDE 30 ML UDCUP PO PRN (23:13)
[2018-08-19] MEDS ORDERED: MAG HYDROX/AL HYDROX/SIMETH 30 ML UDCUP PO PRN (23:13)
[2018-08-19] MEDS ORDERED: OLANZapine DISINTEGR 10 MG TAB PO PRN (23:13)
[2018-08-19] MEDS ORDERED: LORazepam 1 MG TAB PO PRN (23:15)
[2018-08-20] MEDS: NICOTINE 21 MG/24 HR PATCH TD SCH (11:31)
--- NOTE | 2018-08-20 11:53 | ASMTBHMTP ---
Master Treatment Plan Master Treatment Plan Answers: Mood Instability with for: Psychosis Date: 08/20/2018 Diagnosis on Admission: Schizoaffective Disorder, Bipolar Type Expected length of stay: 3-5 Days Reason for admission: Notes: PT 43 YO male with a history of schizoaffective bipolar type disorder, arriving via EMS on an M1 hold for schizophrenia. Per EMS and BPD the patient has disorganized thought and states he is unsure if he ate today or paid his rent. He reports he hasn't showered since March. He denies taking his medications using THC daily instead. He has aggressive language and speaks about guns often but has No homicidal or suicidal ideations. Per M1 Hold written by [facility] Automotive Service Professional Som meets criteria for grave disability due to disorganization as a result of unmanaged schizophrenia, he is unsure if he has eaten today, indicates he has not paid his rent, he is not taking his medications as prescribed, he is 10 days overdue or his injection, He not has not showered since March. His apartment is in disarray; His language is increasingly aggressive and speaks often guns. PT was given 10mg of zyprexa and ativan Showered in the ED (for 30 minutes obsessively scrubbing) Per [facility] Clinician Note on 07/22/18 - the plan was continue invega sustena 156mg q3wks.This is his 4th injection at this frequency. Patient's stated presenting problems: Notes: Pt. stated "when mom's peace was disturbed and I wound up in the hospital". Patient's goals for treatment: Notes: Pt. stated he would like to get his mail and backpack from home, stating "I'd be entertained". Pt. added he would like to improve his credit score as well. Patient's strengths: Notes: Pt. stated "Justice, judgment dependability, and integrity". Identify supports outside of hospital: Notes: Pt. stated Virgen Gonzalez and Haley Weinstein with [facility], adding he would like to not see them again. Discharge criteria: Notes: Patient will demonstrate a more stable mood by discharge. Initial disposition plan/considerations: Notes: Pt. stated he plans to return to his apartment in [place] Master Treatment Plan Required Signatures Psychiatrist signature: Answers: Psychiatrist: RN on-shift signature: Answers: RN: Patient signature: Answers: Patient: Date Signed: 08/20/2018 11:53 AM Electronically Signed By:Jalyn Medina
--- NOTE | 2018-08-20 12:47 | PDMN ---
Medical Necessity Medical necessity: Pt meets IP criteria per & [facility] B-014-IP; est los >2 mn for eval/tx of schizoaffective disorder, bipolar type; pt on M1 hold due to risk of harm to self/others & is gravely disabled; admit for further monitoring , safety, crisis stabilization & med management; per order 08/19/18
[2018-08-20] MEDS: NICOTINE POLACRILEX 2 MG GUM B PRN ×3 (14:04→18:05)
[2018-08-20] MEDS ORDERED: ALBUTEROL 60 PUFFS/8 GM MDI IH PRN (15:12)
--- NOTE | 2018-08-20 16:09 | GCON ---
[f rep ] CONSULTATION MEDICINE CONSULTATION DATE OF CONSULTATION: 08/20/2018 CHIEF COMPLAINT: The police brought me in here. HISTORY: This is a 43-year-old man with a past medical history of schizoaffective disorder and homel essness, who was brought in by the police for concerns of disorganized thoughts and grave disability due to his mental illness. Patient was placed on an M1 hold. At the time of my evaluation, patient is cooperative and calm, but really is not able to answer questions appropriately. He tells me that he feels fine and that he just acted up with the instructional support technician and that is why they brought him in. He states he really should not do that, but that he did. He denies any current complaints and states that his psychiatric symptoms are chronic and are unchanged whether he is on medications or not. PAST MEDICAL HISTORY: Includes 1. Schizoaffective disorder. 2. Recurrent hyponatremia. PAST SURGICAL HISTORY: Denies. FAMILY HISTORY: He denies any significant family history. SOCIAL HISTORY: Patient apparently lives in a home in [place]. He is single and not homeless. He s tates that he drinks alcohol rarely. Uses tobacco and marijuana daily. REVIEW OF SYSTEMS: Ten-point review of systems obtained and negative except as per HPI. HOME MEDICATIONS: 1. Invega. 2. Herbal supplements. ALLERGIES: No known drug allergies. PHYSICAL EXAM: VITAL SIGNS: BP 138/86, heart rate 86, respiratory rate 14, O2 saturation 92% on destinee m air, temperature 36.4. GENERAL APPEARANCE: He is disheveled. He is awake and alert. He is in no acute distress. EYES: Anicteric. HEENT: There is a large well-circumscribed mass on his left pavel ek. Poor dentition. CARDIOVASCULAR: Regular rate and rhythm. No MRG. PULMONARY: There is expira tory wheeze, but normal work of breathing. ABDOMEN: Soft, nontender, nondistended. EXTREMITIES: N o clubbing, cyanosis, or edema. SKIN: Warm, dry, well perfused. NEURO/PSYCH: Oriented and calm, b ut a bit tangential. CLINICAL DATA: Labs reviewed, notable for white blood cell count of 13.5, sodium of 135. Tox screen is positive for marijuana. Most recent chest x-ray reviewed and notable for evidence of COPD. ASSESSMENT/PLAN: This is a 43-year-old man, past medical history that includes schizoaffective disor анна, and presumed chronic obstructive pulmonary disease, presenting with agitation and disorganizatio n in the setting of being off his medications for schizoaffective disorder. 1. Schizoaffective disorder. He does generally take an Invega injection and sounds like he may have been given that already. I do not see any medical indication to defer any treatment thought to be a ppropriate by Psychiatry and further treatment for this will be deferred to their care. 2. Presumed chronic obstructive pulmonary disease. Patient does have evidence of bullae on imaging and evidence of wheezing on exam. He states this is normal for him and he does not wish to have any medication for this. Will order albuterol p.r.n. in case this gets worse, as well as Combivent, but again unclear if he will be amenable to taking that and that is fine if he refuses, as he does not ap pear to be significantly decompensated at this point. 3. History of hyponatremia with a normal sodium level at this point. 4. Disposition. This is per the Psychiatric service. Thank you for this consultation. Medicine will be available peripherally should questions arise masha gillette this patient's hospitalization. /[id number]/MODL
--- NOTE | 2018-08-20 16:12 | ASMTCMCOM ---
CM Note CM Note Notes: CC met with pt. to complete MTP. Pt. requested a notebook and sweatshirt from his backpack, adding he has a brand new knife in his bag. Pt. reports having an apartment in [facility]. Pt. stated he sees Virgen Gonzalez and Haley Weinstein at [facility], adding he would rather not see them again. Pt. stated he has a PCP at [facility], named Dr. Hector Malcolm. Pt. asked CC to look up 11 strengths he found online. Pt. stated he has a large "zit" on the left side of his face. Pt. presents as alert, very malodorous lacking insight, unkempt, and cooperative. Staff report pt. sleeping 7 hours and being medication compliant. CC to ask pt. to sign FRANK for [facility]. Pt's M1 hold states he is not paying his rent, CC may need to check if pt. can return to his apartment. Date Signed: 08/20/2018 04:12 PM Electronically Signed By:Jalyn Medina
[2018-08-20] MEDS: IPRATROPIUM/ALBUTEROL 4GM MDI IH SCH ×2 (16:22→21:10)
[2018-08-20] MEDS ORDERED: PALIPERIDONE PALMITATE 156 MG/ML SYR IM ONE (16:31)
--- NOTE | 2018-08-20 16:53 | BAPA ---
[f rep st] ADMISSION PSYCHIATRIC ASSESSMENT DATE OF SERVICE: 08/20/2018 CHIEF COMPLAINT: "I got here by police because I didn't come in for my shot. I only use THC." HISTORY OF PRESENT ILLNESS: The patient is a 43-year-old man with a history of schizoaffective disorder, bipolar type. Arrived via EMS on an M1 hold. According to EMS and [employer], the patient had disorganized thought and states he is not sure if he ate today or paid his rent. He reports he has not taken a shower since March. He denies taking his medications. Says that he uses marijuana daily. He was agitated and hostile with [place] Police. His M1 hold was written by [facility] long term care social worker who said that the patient met criteria for grave disability due to his disorganization, large weight loss, stating that he had not paid his rent, and was not taking his medications as prescribed, did not show up for his appointments in July at [facility], not attending to his activities of daily living or his hygiene. The [facility] long term care social worker noted the patient's apartment was in a state of disarray. The patient was brought in to the ED in 4-point restraints. He was given an IM dose of Zyprexa 10 mg as well as an IM Ativan in the ED for agitation and aggressive behavior. The patient did eventually calm down. When this MD met with the patient on the inpatient Behavioral Health Services Unit, he was pacing in his room and in the hallway. The patient was very malodorous and disheveled. He was wearing jeans and a long sleeve sweatshirt. He showed signs of poor hygiene and poor self-care. He admitted that he had not been taking any of his prescribed medications, but stated that he "only uses cannabis," which he states he has been using on a daily basis. PAST PSYCHIATRIC HISTORY: This patient has multiple psychiatric hospitalizations. Most recently, he was at [facility] on [address] [place] [id number] from 01/07/2018 to 01/13/2018. Before that, he was here from 12/14/2017 to 12/29/2017, and prior to that, his last admission on [address] [place] [id number] was on 2013. The patient has also been admitted to other psychiatric facilities, including [facility] in November of 2017. He was also at [facility] in October of 2017. His outpatient provider is Dr. Morillo at [facility]. He has been maintained on Invega Sustenna. According to records, he gets 156 mg injection every 21 days, and that is the only medications that he is being prescribed currently. Our pharmacist was able to get records from [facility] which indicated that the patient was due for his most recent long-acting injection on August 04, which he did not receive. So he is more than 2 weeks past due for his Invega Sustenna injection. ALLERGIES: The patient has no known drug allergies. CURRENT MEDICATIONS: Patient is currently prescribed paliperidone palmitate 156 mg injection q. 21 days. PAST MEDICAL HISTORY: The patient has a prior history of recurrent hyponatremia. He denies any previous surgical history. LABS: From this admission. White cell count was 13.53, hemoglobin 14.7, hematocrit 42.6, platelet count 275. Sodium was 135, potassium 3.7, chloride 100 , BUN 14, creatinine 0.6, glucose 96, calcium 8.9. Urine drug screen was positive for marijuana. Negative for all other drugs of abuse. SOCIAL HISTORY: Patient has been living in an apartment in [place], but according to collateral information, the patient may be in the process of being evicted because he has not paid his rent recently. In the past, he has been homeless. He has a sister who lives in [place]. His mother is currently living in [place]. His parents are . 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 He is currently living off disability. FAMILY HISTORY: No family history of mental illness or substance use is reported. TRAUMA HISTORY: Unknown. LEGAL HISTORY: The patient has no current legal issues pending. Although he thinks that he may be in the process of being evicted. SUBSTANCE USE HISTORY: Patient admits that he uses marijuana on a daily basis and has used for quite a while. He denies using other illicit recreational substances. MENTAL STATUS EXAMINATION This is a tall, thin, very disheveled, unkempt man wearing street clothes, pacing in the hallways, very poor hygiene, unwashed. He is oriented to person, but not to place, time or situation. His affect is blunted. He does not make good eye contact. Mostly stares at the ground or at the craig. Speech is slow, and volume is low. Intellectual function appears to be below average. He is not endorsing any mood-related symptoms at this time. He denies feeling sad, helpless, hopeless, worthless, or anxious. He denies experiencing auditory or visual hallucinations. He denies paranoid delusions and ideas of reference. He does not endorse any thoughts plans or intents to hurt himself or anyone else. He is not exhibiting symptoms of dereck. He does not have increase in goal- directed activity, decreased need for sleep, racing thoughts, pressured speech, elevated or elated mood or grandiose delusions. His thought process is very disorganized and illogical as evidenced by the fact that he has not been taking medications and does not believe he needs medications other than cannabis to treat his symptoms. His insight and judgment are both impaired. IMPRESSION: 1. Schizoaffective disorder, bipolar type by history. 2. Cannabis use disorder, severe. 3. Long-term noncompliance with treatment, chronic substance use, lack of social support, unemployed, on disability, has previously been homeless, currently may be in jeopardy of losing his housing, financial issues. PLAN: 1. Admit patient to the inpatient Behavioral Health Services Unit on an M1 hold. 2. Will continue to monitor and observe the patient. He is not currently exhibiting signs of unsafe behavior. He was in 4 point restraints and received IM medications due to severe agitation while in the ED. His behavior has been calm, cooperative, and appropriate since his arrival on the unit. 3. [facility] confirmed that the patient was to receive his most recent injection of Invega Sustenna on August 04, but he did not come to his appointment or receive his medication at that time. He is more than 5 weeks since he received his last injection. According to the drug coil wrapper, patients who are less than 6 weeks since their last dose could be restarted on the same dose that they were stabilized on. Therefore, will order Invega Sustenna 156 mg IM for the patient to receive as soon as possible to get him back on his long-acting injectable schedule. The patient was not taking any other medications as an outpatient. He has taken Depakote in the past, but according to [facility] records, he has not received any Depakote recently. 4. The rn coronary care unit has requested information for [facility]. Inpatient treatment team will attempt to speak with his outpatient providers and coordinate care. This patient has a long history of noncompliance and nonadherence with treatment, even with long-acting injectables, he is not compliant. [facility] may want to start supervising him more regularly, doing routine check-ins with him either through in-person contact or via cellphone or text or IM messaging. 5. The patient is not sure about his current housing status. He thinks he might be in the process of being evicted from his current housing. studio coordinator will attempt to contact the patient's customer strategy manager to determine whether or not the patient can return to his physical address in [place]. 6. Estimated length of stay is 5-7 days. /[id number]/MODL and [id number]/MODL KAITLIN
[2018-08-21] MEDS: IPRATROPIUM/ALBUTEROL 4GM MDI IH SCH ×4 (05:56→21:22)
[2018-08-21] MEDS: NICOTINE POLACRILEX 2 MG GUM B PRN ×3 (06:52→16:31)
[2018-08-21] MEDS: NICOTINE 21 MG/24 HR PATCH TD SCH (08:48)
--- NOTE | 2018-08-21 14:11 | ASMTCMCOM ---
CM Note CM Note Notes: Pt. reports "getting better all the time". Pt. stated he "didn't" sleep last night, adding he is feeling okay today. Pt. reports eating "lots" adding exercise would help his appetite Pt. reports only taking nicotine medication. Pt. stated he is attending groups. Pt. reports having no issues "just tobacco and coffee". Pt. stated when he discharges he will need a bus pass. Pt. reports being unsure if his "grab and go bag" is here. Pt. stated he would like a new backpack. CC asked about his mail, pt. stated CC must be confused because he did not speak to her about mail yesterday. Pt. reports he is "praying for 2 cups of coffee a day" adding normally is he "unrestricted" when it comes to drinking coffee. Pt. presents as alert, calm, lacking insight, good eye contact, slightly less malodorous today, and mostly cooperative. Staff report pt. sleeping 1.5 hours last night and refusing all medications other than nicotine. CC to schedule follow up appointments with [facility]. Date Signed: 08/21/2018 02:11 PM Electronically Signed By:Jalyn Medina
--- NOTE | 2018-08-21 17:56 | SOAPPROG ---
SOAP Progress Note Assessment/Plan: Assessment: 43 yo man with h/o schizoaffective disorder treated by [facility]. He did not show up for his scheduled KRUSE of Invega Sustenna on 08/04/18. LSCW who did welfare check noted patient had not bathed since 03/27 and was living in disarray. Patient was also paranoid, delusional and disorganized. He was placed on M1 and admitted to OR IP. Plan: 08/21/18 17:51 1. Patient refused his Invega Sustenna injection yesterday. 2. Patient may still be on STC/COM from his last admission. CC to check with [facility] and obtain copy of STC/COM. 3. Once court order for involuntary meds is obtained, if available, patient should be given his regular dose of Invega Sustenna 156mg IM. 4. Patient has been on Depakote in past for manic episodes. He may need to be on mood stabilizer again. If he there is a current court order for involuntary medications, Depakote or similar mood stabilizer should be restarted. 5. Patient only slept 1.5 hrs last night. 6. [facility] expires on 08/22/18. Subjective: Patient refused his Invega Sustenna injection yesterday. He claims that he doesn 't need any prescription meds. He only wants cannabis, coffee and tobacco. He reports he has been smoking more than a pack a day for past several months. His only request is for "more coffee." He doesn't remember speaking to MD or CC yesterday. Objective: Vital Signs Temp Pulse Resp BP Pulse Ox 36.7 C 53 L 14 130/69 H 96 08/21/18 06:00 08/21/18 06:00 08/21/18 06:00 08/21/18 06:00 08/21/18 06:00 MSE: Affect: Labile, elevated Mood: "Fine" TP: Disorganized, loose TC: Denies any SI/HI, remains delusional and paranoid Perception: Denies any AH/VH , but appears internally preoccupied Insight/Judgment: Impaired - Time Spent With Patient Time Spent With Patient: 15" - Pending Discharge Pending Discharge Within 24 Hours: No Pending Discharge Within 48 Hours: No ICD10 Worksheet Patient Problems: Problems Problem Status Onset Schizoaffective disorder, bipolar type Chronic Cannabis use disorder, severe, in controlled environment Acute Cannabis withdrawal Acute Hyponatremia Acute Nonadherence to medication Acute Patient non adherence Acute Schizoaffective disorder Acute
[2018-08-22] MEDS: IPRATROPIUM/ALBUTEROL 4GM MDI IH SCH ×4 (06:01→22:21)
--- NOTE | 2018-08-22 06:50 | SOAPPROG ---
SOAP Progress Note Assessment/Plan: Assessment: Schizoaffective Disorder, Bipolar Type, Cannabis Use Disorder, Severe, Nicotine Dependence, Medication non-adherence. No improvement noted (see subjective/ objective note). Patient is not safe to discharge at this time as patient continues to exhibit signs of psychosis (notably delusions), and express psychosis symptoms. Patient requires continued inpatient care because of current psychosis, and requires inpatient level of care to stabilize in order to no longer be gravely disabled due to mental illness. Patient exhibits persistent inability to perform essential function due to psychotic condition. Patient is unable to test reality, poor insight into current condition, and poor judgement. Patient refusing medications. Patients support system has inability to manage functional impairment at lower level of care. Patient could benefit from continued inpatient hospitalization for crisis stabilization , safety, and medication evaluation. Plan: 1. Psychotropic medications: Patient refuses Invega Sustenna IM maintenance dose. 2. Review with patient informed consent and recommendations for psychotropic medication treatment listed below 3. Labs: no additional labs at this time 4. Therapy: continue milieu and group therapy 5. Further investigation including gathering information from patients relatives and review of past case records to inform treatment plan. 6. Safety/Wellness plan and follow-up outpatient appointments to be established prior to discharge. Next steps are for patient to meet with healthcare management to plan a safe discharge plan and establish outpatient services for ongoing treatment. 7. Confer with inpatient treatment team regarding treatment plan. 8. Psychosocial stressors addressed through showcase trimmer. 9. Legal status: M1 10. Consider discharge tomorrow if patient is in stable condition, safe, and has a safe discharge plan. 11. Substance abuse interventions: THC PSYCHOTROPIC MEDICATION TREATMENT INFORMED CONSENT and RECOMMENDATIONS: Review nature of condition, diagnosis, and prognosis. Review nature and purpose of psychotropic medication treatment. Review type of psychotropic medications being ordered. Review risk and benefits of psychotropic medication treatment. Review probable length of time patient will need to take medications. Review risk and benefits of not undergoing psychotropic medication treatment. Review alternative treatments to psychotropic medications. Review psychotropic medications contraindications, drug-drug interactions, side effects, and importance of reporting any side effects to a psychiatric provider or nurse during inpatient hospitalization, and upon discharge to patients psychiatric outpatient provider, primary care provider, or other health child care attendant. Review importance of asking a nurse, psychiatric provider, or primary care provider any questions or problems concerning the psychotropic medications. Verify patient understands the information that has been provided, and understands, accepts, and agrees to psychotropic medications. Review patients safety plan and importance of patient to report to staff while hospitalized if patient is ever a danger to self/others, or unable to care for self, and upon discharge, the importance for patient to contact [facility] or [facility], or go to the nearest emergency room, if patient is ever a danger to self/others, or unable to care for self. Recommend that upon discharge patient establish medication management treatment with a psychiatric provider, establishes routine therapy appointments, and follow-up with primary care provider. Verify patient understands and agrees to these recommendations. 08/22/18 06:50 Subjective: Following up with patient for evaluation of psychosis and safety. Patient reports, "Going good." Patient reports he is not willing to have Invega Sustenna IM maintenance dose administered, and states, "I only need cannabis." Patient reports using cannabis prior to admission and communicates that he has no intention on quitting the use of THC. Objective: Vital Signs Temp Pulse Resp BP Pulse Ox 36.5 C 99 14 113/77 92 08/22/18 06:00 08/22/18 06:00 08/22/18 06:00 08/22/18 06:00 08/22/18 06:00 MSE: The patient is an under-nourished male looking older chronological age. Attire is appropriate and casual. Grooming status is appropriate. Ambulation is independent. Gait is normal and coordinated. Posture is normal and relaxed. Eye contact is appropriate. Motor activity is appropriate with purposeful, organized, coordinated movements; with no involuntary movements. Attitude is uncooperative. Patient appears disinterested and distractible and does not relate well to this interviewer. Language production is spontaneous. R/R/V normal. Articulation is clear. Patient reports mood as okay with constricted, flat and inappropriate and incongruent affect. Patients thought process is non-linear, illogical, and disorganized. Patient denies suicidal thoughts, denies homicidal ideation. Patient denies auditory, visual hallucinations. Patient reports delusions. Patient does not appear to be attending to internal stimuli. Patients attention and concentration are poor. Patient is oriented to person, place. Patients insight and judgment are poor. MD REPORT FROM WEEKEND: Pt did not show-up for scheduled Invega Sustenna IM maintenance on 08/04/18. Pt refused IM over the weekend. SUBSTANCE ABUSE BRIEF INTERVENTION: Brief intervention regarding the risks of THC abuse is provided to patient with goal to reduce the risk of harm that could result from the continued use of THC, with the general aim to investigate the problem, raise awareness of problem, develop a solution with the patient, recommend a specific change or activity, and motivate the patient toward change. Assess substance abuse behavior and give supportive advice about harm reduction, recommend a reduction in hazardous/at-risk consumption patterns, and facilitate referrals for additional specialized treatment with career specialist. Intermediate goal is for the patient to quit and attend outpatient substance abuse treatment. Intervention focus on intermediate goals to allow for more immediate success in the treatment process to keep the patient motivated. Review following with patient: Cannabis use risks: Short- term use: impaired short-term memory, impaired motor coordination, altered judgement, in high doses paranoia and psychosis. Long-term use addiction, diminished life satisfaction and achievement, symptoms of chronic bronchitis, and increased risk of chronic psychosis disorders if predisposition to such disorders. In withdrawal anger, aggression irritability, anxiety and nervousness, decreased appetite or weight loss, restlessness, and sleep difficulties with strange dreams. OUTPATIENT SUBSTANCE ABUSE TREATMENT: Patient referred to outpatient provider and treatment for continued treatment related to substance abuse. - Time Spent With Patient Time Spent With Patient: 15 minutes, met with patient individually. - Pending Discharge Pending Discharge Within 24 Hours: No Pending Discharge Within 48 Hours: No ICD10 Worksheet Patient Problems: Problems Problem Status Onset Cannabis use disorder, severe, in controlled environment Acute Nicotine dependence Acute Patient non adherence Acute Schizoaffective disorder, bipolar type Chronic Cannabis withdrawal Acute Hyponatremia Acute Nonadherence to medication Acute Schizoaffective disorder Acute
[2018-08-22] MEDS: NICOTINE 21 MG/24 HR PATCH TD SCH (08:48)
--- NOTE | 2018-08-22 14:15 | ASMTCMCOM ---
CM Note CM Note Notes: Pt. reports wanting his Invega injection. RN notified. Pt. stated he spoke with his provider and is suppose to discharge at 1pm today. Pt. was informed that he is being placed on a STC. Pt. reports wanting to smoke. Pt. stated "Invega makes me rage, makes me angry". Pt. stated later "Invega sounds exciting". Pt. reports sleeping "deeply". Pt. reports getting enough to eat. Pt. stated he wants to know how he can "abandone my apartment" adding all of his property inside can be "incinerated" or given to his mother. Pt. denied SI, HI, AVH and paranoia. Pt. presents as alert, calm, guarded, disorganized, good eye contact, appearing to have showered, and cooperative. Staff report pt. sleeping 5 hours and refusing all medications this morning. CC to reach out to [facility] for follow up appointments. Date Signed: 08/22/2018 02:14 PM Electronically Signed By:Jalyn Medina
[2018-08-23] MEDS: IPRATROPIUM/ALBUTEROL 4GM MDI IH SCH ×4 (05:16→20:33)
--- NOTE | 2018-08-23 05:51 | SOAPPROG ---
SOAP Progress Note Assessment/Plan: Assessment: Schizoaffective Disorder, Bipolar Type, Cannabis Use Disorder, Severe, Nicotine Dependence, Medication non-adherence. No improvement noted (see subjective/ objective note). Patient is not safe to discharge at this time as patient continues to exhibit signs of psychosis (notably delusions, disorganized). Patient requires continued inpatient care because of current psychosis, and requires inpatient level of care to stabilize in order to no longer be gravely disabled due to mental illness. Patient exhibits persistent inability to perform essential function due to psychotic condition. Patient is unable to test reality, poor insight into current condition, and poor judgement. Patient refusing medications. Patients support system has inability to manage functional impairment at lower level of care. Patient could benefit from continued inpatient hospitalization for crisis stabilization, safety, and medication evaluation. Plan: 1. Psychotropic medications: Begin Invega 6 mg po QD. 2. Review with patient informed consent and recommendations for psychotropic medication treatment listed below 3. Labs: no additional labs at this time 4. Therapy: continue milieu and group therapy 5. Further investigation including gathering information from patients relatives and review of past case records to inform treatment plan. 6. Safety/Wellness plan and follow-up outpatient appointments to be established prior to discharge. Next steps are for patient to meet with critical care technician to plan a safe discharge plan and establish outpatient services for ongoing treatment. 7. Confer with inpatient treatment team regarding treatment plan. 8. Psychosocial stressors addressed through child welfare caseworker. 9. Legal status: [facility] 10. Consider discharge tomorrow if patient is in stable condition, safe, and has a safe discharge plan. 11. Substance abuse interventions: THC PSYCHOTROPIC MEDICATION TREATMENT INFORMED CONSENT and RECOMMENDATIONS: Review nature of condition, diagnosis, and prognosis. Review nature and purpose of psychotropic medication treatment. Review type of psychotropic medications being ordered. Review risk and benefits of psychotropic medication treatment. Review probable length of time patient will need to take medications. Review risk and benefits of not undergoing psychotropic medication treatment. Review alternative treatments to psychotropic medications. Review psychotropic medications contraindications, drug-drug interactions, side effects, and importance of reporting any side effects to a psychiatric provider or nurse during inpatient hospitalization, and upon discharge to patients psychiatric outpatient provider, primary care provider, or other health health care marketing manager. Review importance of asking a nurse, psychiatric provider, or primary care provider any questions or problems concerning the psychotropic medications. Verify patient understands the information that has been provided, and understands, accepts, and agrees to psychotropic medications. Review patients safety plan and importance of patient to report to staff while hospitalized if patient is ever a danger to self/others, or unable to care for self, and upon discharge, the importance for patient to contact [facility] or [facility], or go to the nearest emergency room, if patient is ever a danger to self/others, or unable to care for self. Recommend that upon discharge patient establish medication management treatment with a psychiatric provider, establishes routine therapy appointments, and follow-up with primary care provider. Verify patient understands and agrees to these recommendations. 08/23/18 05:54 Subjective: Following up with patient for evaluation of psychosis and safety. Patient reports, "I am okay. Why?" Discuss medication options, risks, and benefits with patient. Patient refuses medications and states he was never on Invega Sustenna. Patient states, "What's that? How about some cannabis?" Objective: Vital Signs Temp Pulse Resp BP Pulse Ox 36.5 C 99 14 113/77 92 08/22/18 06:00 08/22/18 06:00 08/22/18 06:00 08/22/18 06:00 08/22/18 06:00 MSE: The patient is an under-nourished male looking older than chronological age. Attire is appropriate and dress is casual. Grooming status is appropriate. Ambulation is independent. Gait is normal and coordinated. Posture is normal and relaxed. Eye contact is appropriate. Motor activity is appropriate with purposeful, organized, coordinated movements; with no involuntary movements. Attitude is uncooperative. Patient appears disinterested and distractible and does not relate well to this interviewer. Language production is spontaneous. R/R/V normal. Articulation is clear. Patient reports mood as okay with constricted, flat and inappropriate and incongruent affect. Patients thought process is non-linear, illogical, nonsensical, and disorganized. Patient denies suicidal thoughts, denies homicidal ideation. Patient denies auditory, visual hallucinations. Patient reports delusions. Patient does not appear to be attending to internal stimuli. Patients attention and concentration are poor. Patient is oriented to person, place. Patients insight and judgment are poor. MD REPORT FROM WEEKEND: Pt did not show-up for scheduled Invega Sustenna IM maintenance on 08/04/18. Pt refused IM over the weekend. SUBSTANCE ABUSE BRIEF INTERVENTION: Brief intervention regarding the risks of THC abuse is provided to patient with goal to reduce the risk of harm that could result from the continued use of THC, with the general aim to investigate the problem, raise awareness of problem, develop a solution with the patient, recommend a specific change or activity, and motivate the patient toward change. Assess substance abuse behavior and give supportive advice about harm reduction, recommend a reduction in hazardous/at-risk consumption patterns, and facilitate referrals for additional specialized treatment with career placement specialist. Intermediate goal is for the patient to quit and attend outpatient substance abuse treatment. Intervention focus on intermediate goals to allow for more immediate success in the treatment process to keep the patient motivated. Review following with patient: Cannabis use risks: Short- term use: impaired short-term memory, impaired motor coordination, altered judgement, in high doses paranoia and psychosis. Long-term use addiction, diminished life satisfaction and achievement, symptoms of chronic bronchitis, and increased risk of chronic psychosis disorders if predisposition to such disorders. In withdrawal anger, aggression irritability, anxiety and nervousness, decreased appetite or weight loss, restlessness, and sleep difficulties with strange dreams. OUTPATIENT SUBSTANCE ABUSE TREATMENT: Patient referred to outpatient provider and treatment for continued treatment related to substance abuse. - Time Spent With Patient Time Spent With Patient: 15 minutes, met with patient individually. - Pending Discharge Pending Discharge Within 24 Hours: No Pending Discharge Within 48 Hours: No ICD10 Worksheet Patient Problems: Problems Problem Status Onset Cannabis use disorder, severe, in controlled environment Acute Nicotine dependence Acute Patient non adherence Acute Schizoaffective disorder, bipolar type Chronic Cannabis withdrawal Acute Hyponatremia Acute Nonadherence to medication Acute Schizoaffective disorder Acute
[2018-08-23] MEDS: NICOTINE 21 MG/24 HR PATCH TD SCH (08:55)
[2018-08-23] MEDS ORDERED: PALIPERIDONE 3 MG TAB.ER PO SCH (09:00)
[2018-08-23] MEDS: PALIPERIDONE 3 MG TAB.ER PO SCH (09:03)
--- NOTE | 2018-08-23 12:51 | ASMTCMCOM ---
CM Note CM Note Notes: Pt. reports wanting to wait to meet till he had coffee. CC approached pt. later. Pt. reports feeling "much better". PT. reports sleeping "pretty good, pretty comfortable". Pt. reports getting "plenty" to eat. Pt. reports not wanting a KRUSE, stating he doesn't want to be "penetrated". Pt. stated he feels he has the opposite "spiriual orientation" than the KRUSE. Pt. reports if he speak slower, "mom won't medicate". Pt. stated he "don't need to impress mom". Pt. reports only wanting "cannabis" medication, adding this is the only medication he needs. Pt. shared about where he was born, stating "where you come from affects medications to take". Pt. reports he will "try to make groups". Pt. reports wanting to be transferred to another facility, [facility], because they allow his to smoke. Pt. stated "not really" when asked about SI/HI. Pt. denied AVH and paranoia. Pt. stated there is a male staff person, who has been assigned to him, whom the pt. has seen on multiple units. Pt. reports getting his disability check on the 3rd. Pt. stated he wants to "leave the [place]" and go to "the [facility] [place]". Pt. reports not liking medications other than "cocaine and methadon". Pt. presents as alert, calm, good eye contact, disorganized, lacking insight, and mostly cooperative. Staff report pt. sleeping 7 hours and taking oral Invega. Pt. attending treatment team planning this morning and signed an FRANK for [facility]. Pt. agreed to allow a visit from his ACT therapist with [facility]. CC to contact [facility] liaison to schedule follow up appointments. Date Signed: 08/23/2018 12:50 PM Electronically Signed By:Jalyn Medina
--- NOTE | 2018-08-23 13:36 | ASMTBHDC ---
Notes Note: Notes: CC spoke with P liaison Misti. Misti will be the tooth cutter contact wheel for this pt's follow up care. Misti stated pt. has been "arming himself" and she is curious why. Misti stated pt. has been showing up to appointments with a "pellet gun" and "knives". Misti reports these actions are "worrysome". Misti stated pt. was seeing Haley Weinstein, who is currently , and the pt has become "innappropriately obsessed". Misti stated the pt. will no longer be seeing Haley Weinstein. Misti stated pt. sees ACT therapist, Romana Gomez and can continue with her. Misti stated pt. had to "be taken to the ground" by police just prior to pt's admission. Misti stated [facility] will not hold a STC or COM for this patient. Date Signed: 08/23/2018 01:36 PM Electronically Signed By:Jalyn Medina
--- NOTE | 2018-08-23 16:08 | ASMTCMCOM ---
CM Note CM Note Notes: The patient was notified that he will no longer be seeing one of his providers at [facility] due to his inappropriate behavior. The patient acknlowedged that he understood this decision. The patient was also notified that he may be visited by a member of his outpatient ACT team. He stated, "Well I'm not sure what they are looking for but I always seem to find it." Regarding the [facility] report that the patient presents "armed" for his appointments, the patient stated "It is in my home. They ([facility]) should bare arms. I'm always protected." Date Signed: 08/23/2018 04:07 PM Electronically Signed By:Deirdre Adames
[2018-08-23] MEDS: NICOTINE POLACRILEX 2 MG GUM B PRN (17:56)
[2018-08-24] MEDS: IPRATROPIUM/ALBUTEROL 4GM MDI IH SCH ×4 (05:57→20:31)
--- NOTE | 2018-08-24 06:16 | SOAPPROG ---
SOAP Progress Note Assessment/Plan: Assessment: Schizoaffective Disorder, Bipolar Type, Cannabis Use Disorder, Severe, Nicotine Dependence, Medication non-adherence. No improvement noted (see subjective/ objective note). Patient is not safe to discharge at this time as patient continues to exhibit signs of psychosis (notably delusions, disorganized). Patient requires continued inpatient care because of current psychosis, and requires inpatient level of care to stabilize in order to no longer be gravely disabled due to mental illness. Patient exhibits persistent inability to perform essential function due to psychotic condition. Patient is unable to test reality, poor insight into current condition, and poor judgement. Patient refusing needed medications. Patient could benefit from KRUSE prior to discharge to improve adherence, and reduce the likelihood of rehospitalization. Patients support system has inability to manage functional impairment at lower level of care. Patient could benefit from continued inpatient hospitalization for crisis stabilization, safety, and medication evaluation. Plan: 1. Psychotropic medications: Continue current medications. Continue to educate patient on benefits of KRUSE. 2. Review with patient informed consent and recommendations for psychotropic medication treatment listed below 3. Labs: no additional labs at this time 4. Therapy: continue milieu and group therapy 5. Further investigation including gathering information from patients relatives and review of past case records to inform treatment plan. 6. Safety/Wellness plan and follow-up outpatient appointments to be established prior to discharge. Next steps are for patient to meet with acute care physician to plan a safe discharge plan and establish outpatient services for ongoing treatment. 7. Confer with inpatient treatment team regarding treatment plan. 8. Psychosocial stressors addressed through family preservation caseworker. 9. Legal status: [facility] 10. Consider discharge tomorrow if patient is in stable condition, safe, and has a safe discharge plan. 11. Substance abuse interventions: THC PSYCHOTROPIC MEDICATION TREATMENT INFORMED CONSENT and RECOMMENDATIONS: Review nature of condition, diagnosis, and prognosis. Review nature and purpose of psychotropic medication treatment. Review type of psychotropic medications being ordered. Review risk and benefits of psychotropic medication treatment. Review probable length of time patient will need to take medications. Review risk and benefits of not undergoing psychotropic medication treatment. Review alternative treatments to psychotropic medications. Review psychotropic medications contraindications, drug-drug interactions, side effects, and importance of reporting any side effects to a psychiatric provider or nurse during inpatient hospitalization, and upon discharge to patients psychiatric outpatient provider, primary care provider, or other health senior care specialist. Review importance of asking a nurse, psychiatric provider, or primary care provider any questions or problems concerning the psychotropic medications. Verify patient understands the information that has been provided, and understands, accepts, and agrees to psychotropic medications. Review patients safety plan and importance of patient to report to staff while hospitalized if patient is ever a danger to self/others, or unable to care for self, and upon discharge, the importance for patient to contact [facility] or [facility], or go to the nearest emergency room, if patient is ever a danger to self/others, or unable to care for self. Recommend that upon discharge patient establish medication management treatment with a psychiatric provider, establishes routine therapy appointments, and follow-up with primary care provider. Verify patient understands and agrees to these recommendations. 08/24/18 06:13 Subjective: Following up with patient for evaluation of psychosis and safety. Patient reports, "Doing good." Patient reports taking medications as prescribed and reports no side effects. Patient states, "I will take the oral, but not the injection." Objective: Vital Signs Temp Pulse Resp BP Pulse Ox 36.4 C 100 16 102/71 94 08/23/18 06:00 08/23/18 06:00 08/23/18 06:00 08/23/18 06:00 08/23/18 06:00 MSE: The patient is an under-nourished male looking older chronological age. Attire is appropriate and dress is casual. Grooming status is appropriate. Ambulation is independent. Gait is normal and coordinated. Posture is normal and relaxed. Eye contact is appropriate. Motor activity is appropriate with purposeful, organized, coordinated movements; with no involuntary movements. Attitude is uncooperative. Patient appears disinterested and distractible and does not relate well to this interviewer. Language production is spontaneous. R/R/V normal. Articulation is clear. Patient reports mood as okay with constricted, flat and inappropriate and incongruent affect. Patients thought process is non-linear, illogical, and disorganized. Patient denies suicidal thoughts, denies homicidal ideation. Patient denies auditory, visual hallucinations. Patient reports delusions. Patient does not appear to be attending to internal stimuli. Patients attention and concentration are poor. Patient is oriented to person, place. Patients insight and judgment are poor. SUBSTANCE ABUSE BRIEF INTERVENTION: Brief intervention regarding the risks of THC abuse is provided to patient with goal to reduce the risk of harm that could result from the continued use of THC, with the general aim to investigate the problem, raise awareness of problem, develop a solution with the patient, recommend a specific change or activity, and motivate the patient toward change. Assess substance abuse behavior and give supportive advice about harm reduction, recommend a reduction in hazardous/at-risk consumption patterns, and facilitate referrals for additional specialized treatment with patient care representative. Intermediate goal is for the patient to quit and attend outpatient substance abuse treatment. Intervention focus on intermediate goals to allow for more immediate success in the treatment process to keep the patient motivated. Review following with patient: Cannabis use risks: Short- term use: impaired short-term memory, impaired motor coordination, altered judgement, in high doses paranoia and psychosis. Long-term use addiction, diminished life satisfaction and achievement, symptoms of chronic bronchitis, and increased risk of chronic psychosis disorders if predisposition to such disorders. In withdrawal anger, aggression irritability, anxiety and nervousness, decreased appetite or weight loss, restlessness, and sleep difficulties with strange dreams. OUTPATIENT SUBSTANCE ABUSE TREATMENT: Patient referred to outpatient provider and treatment for continued treatment related to substance abuse. - Time Spent With Patient Time Spent With Patient: 15 minutes, met with patient individually. - Pending Discharge Pending Discharge Within 24 Hours: No Pending Discharge Within 48 Hours: No ICD10 Worksheet Patient Problems: Problems Problem Status Onset Cannabis use disorder, severe, in controlled environment Acute Nicotine dependence Acute Patient non adherence Acute Schizoaffective disorder, bipolar type Chronic Cannabis withdrawal Acute Hyponatremia Acute Nonadherence to medication Acute Schizoaffective disorder Acute
[2018-08-24] MEDS: NICOTINE POLACRILEX 2 MG GUM B PRN (07:32)
[2018-08-24] MEDS: PALIPERIDONE 3 MG TAB.ER PO SCH (07:32)
[2018-08-24] MEDS: NICOTINE 21 MG/24 HR PATCH TD SCH (07:33)
--- NOTE | 2018-08-24 12:55 | ASMTCMCOM ---
CM Note CM Note Notes: CC checked in with ct. fairly early in the morning while he was seating in the dining area. Ct. responded by saying I need my morning coffee. Ct. was not interested in speaking with CC and repeatedly said that he needs his coffee. Ct. approached CC later in the day and apologized for his response. Date Signed: 08/24/2018 12:55 PM Electronically Signed By:Xochitl Milligan
--- NOTE | 2018-08-24 13:22 | ASMTCMCOM ---
CM Note CM Note Notes: CC met with pt. Pt's speech somewhat more organized than yesterday, though at times still circumstantial/tangential. He spoke to his not understanding of why he was found to be gravely disabled and shared his disagreememnt that he has a mental illness. Once hearing the definition for gravely disabled he identified some things in his apartment which may have triggered concern, "have a lot of stuff...some close to being garbage" and referred to his lack of showering due to a shower drain that is not functioning. He discussed continuation of medications, because they "keep me out of the hospital" and sharing his belief that it's possibly the "providers (pharmaceutical companies) who make the medication keep hospitalizing him so that he'll take it. He did state they often keep him from "swearing" which his parents like. D/C Plan: TBD. Pt has an apt in [place] [address] and prior to hospitalization was enrolled in [facility] program. Date Signed: 08/24/2018 01:21 PM Electronically Signed By:Goldie Valdivia
[2018-08-25] MEDS: NICOTINE POLACRILEX 2 MG GUM B PRN (03:46)
[2018-08-25] MEDS: IPRATROPIUM/ALBUTEROL 4GM MDI IH SCH ×4 (06:17→20:20)
--- NOTE | 2018-08-25 06:39 | SOAPPROG ---
SOAP Progress Note Assessment/Plan: Assessment: Schizoaffective Disorder, Bipolar Type, Cannabis Use Disorder, Severe, Nicotine Dependence, Medication non-adherence (KRUSE). No improvement noted (see subjective/objective note). Patient is not safe to discharge at this time as patient continues to exhibit signs of psychosis (notably delusions and disorganized thought process, nonsensical), and express psychosis symptoms. Patient requires continued inpatient care because of current psychosis, and requires inpatient level of care to stabilize in order to no longer be gravely disabled due to mental illness. Patient exhibits persistent inability to perform essential function due to psychotic condition. Patient is unable to complete ADLs appropriately and is unable to communicate his basic needs. Patient exhibits poor insight into current condition, and poor judgement. Patient refusing needed medications (KRUSE). Patients support system has inability to manage functional impairment at lower level of care. Patient could benefit from continued inpatient hospitalization for crisis stabilization , safety, and medication evaluation. Plan: 1. Psychotropic medications: Continue current medications. 2. Review with patient informed consent and recommendations for psychotropic medication treatment listed below 3. Labs: no additional labs at this time 4. Therapy: continue milieu and group therapy 5. Further investigation including gathering information from patients relatives and review of past case records to inform treatment plan. 6. Safety/Wellness plan and follow-up outpatient appointments to be established prior to discharge. Next steps are for patient to meet with healthcare sales representative to plan a safe discharge plan and establish outpatient services for ongoing treatment. 7. Confer with inpatient treatment team regarding treatment plan. 8. Psychosocial stressors addressed through senior case manager. 9. Legal status: [facility] 10. Consider discharge tomorrow if patient is in stable condition, safe, and has a safe discharge plan. 11. Substance abuse interventions: THC PSYCHOTROPIC MEDICATION TREATMENT INFORMED CONSENT and RECOMMENDATIONS: Review nature of condition, diagnosis, and prognosis. Review nature and purpose of psychotropic medication treatment. Review type of psychotropic medications being ordered. Review risk and benefits of psychotropic medication treatment. Review probable length of time patient will need to take medications. Review risk and benefits of not undergoing psychotropic medication treatment. Review alternative treatments to psychotropic medications. Review psychotropic medications contraindications, drug-drug interactions, side effects, and importance of reporting any side effects to a psychiatric provider or nurse during inpatient hospitalization, and upon discharge to patients psychiatric outpatient provider, primary care provider, or other health healthcare customer service. Review importance of asking a nurse, psychiatric provider, or primary care provider any questions or problems concerning the psychotropic medications. Verify patient understands the information that has been provided, and understands, accepts, and agrees to psychotropic medications. Review patients safety plan and importance of patient to report to staff while hospitalized if patient is ever a danger to self/others, or unable to care for self, and upon discharge, the importance for patient to contact [facility] or [facility], or go to the nearest emergency room, if patient is ever a danger to self/others, or unable to care for self. Recommend that upon discharge patient establish medication management treatment with a psychiatric provider, establishes routine therapy appointments, and follow-up with primary care provider. Verify patient understands and agrees to these recommendations. 08/25/18 06:42 Subjective: Following up with patient for evaluation of psychosis and safety. Patient reports, "How about some coffee? Need to start with coffee first." Patient reports taking medications as prescribed and reports no side effects. Patient agrees to continue Invega 6 mg po QD, and does not agree to KRUSE. Objective: Vital Signs Temp Pulse Resp BP Pulse Ox 37.0 C 111 H 16 180/70 H 92 08/25/18 03:30 08/25/18 03:30 08/25/18 03:30 08/25/18 03:30 08/25/18 03:30 MSE: The patient is an under-nourished male looking older chronological age. Attire is appropriate and dress is casual. Grooming status is appropriate. Ambulation is independent. Gait is normal and coordinated. Posture is normal and relaxed. Eye contact is appropriate. Motor activity is appropriate with purposeful, organized, coordinated movements; with no involuntary movements. Attitude is uncooperative. Patient appears disinterested and distractible and does not relate well to this interviewer. Language production is spontaneous. R/R/V normal. Articulation is clear. Patient reports mood as okay with constricted, flat and inappropriate and incongruent affect. Patients thought process is non-linear, illogical, and disorganized. Nonsensical. Patient denies suicidal thoughts, denies homicidal ideation. Patient denies auditory, visual hallucinations. Patient reports delusions. Patient does not appear to be attending to internal stimuli. Patients attention and concentration are poor. Patient is oriented to person, place. Patients insight and judgment are poor. CONTINUITY OF CARE: Inquire made to [facility], Dr. Morillo, to determine if she is willing to accept transfer of STC/COM as will likely need to place patient on COM in order to start KRUSE. SUBSTANCE ABUSE BRIEF INTERVENTION: Brief intervention regarding the risks of THC abuse is provided to patient with goal to reduce the risk of harm that could result from the continued use of THC, with the general aim to investigate the problem, raise awareness of problem, develop a solution with the patient, recommend a specific change or activity, and motivate the patient toward change. Assess substance abuse behavior and give supportive advice about harm reduction, recommend a reduction in hazardous/at-risk consumption patterns, and facilitate referrals for additional specialized treatment with med care manager. Intermediate goal is for the patient to quit and attend outpatient substance abuse treatment. Intervention focus on intermediate goals to allow for more immediate success in the treatment process to keep the patient motivated. Review following with patient: Cannabis use risks: Short- term use: impaired short-term memory, impaired motor coordination, altered judgement, in high doses paranoia and psychosis. Long-term use addiction, diminished life satisfaction and achievement, symptoms of chronic bronchitis, and increased risk of chronic psychosis disorders if predisposition to such disorders. In withdrawal anger, aggression irritability, anxiety and nervousness, decreased appetite or weight loss, restlessness, and sleep difficulties with strange dreams. OUTPATIENT SUBSTANCE ABUSE TREATMENT: Patient referred to outpatient provider and treatment for continued treatment related to substance abuse. - Time Spent With Patient Time Spent With Patient: 15 minutes, met with patient individually. - Pending Discharge Pending Discharge Within 24 Hours: No Pending Discharge Within 48 Hours: No ICD10 Worksheet Patient Problems: Problems Problem Status Onset Cannabis use disorder, severe, in controlled environment Acute Nicotine dependence Acute Patient non adherence Acute Schizoaffective disorder, bipolar type Chronic Cannabis withdrawal Acute Hyponatremia Acute Nonadherence to medication Acute Schizoaffective disorder Acute
[2018-08-25] MEDS: PALIPERIDONE 3 MG TAB.ER PO SCH (08:57)
[2018-08-25] MEDS: NICOTINE 21 MG/24 HR PATCH TD SCH (08:57)
--- NOTE | 2018-08-25 12:57 | ASMTCMCOM ---
CM Note CM Note Notes: The patient reported that he is "well" aeb "decreased infliction requiring less healing." He stated, "I'm accepting pills because I don't give an F word. If it will get them off me, I'll do it." Regarding admission, the patient stated, "I no longer had a diagnosis that was medicatable by my determination. They were just injecting me with rage. This medication is of a different origination." Regarding discharge, the patient plans to "smoke cigarettes" and "go to the pharmacy." The patient later stopped this sheet writer and asked, "What is the point of therapy. Is it behavioral because if it is I'd like to know which behavior and what correction?" as well as, "What is the origination of this medication?" Date Signed: 08/25/2018 12:56 PM Electronically Signed By:Deirdre Adames
[2018-08-26] MEDS: IPRATROPIUM/ALBUTEROL 4GM MDI IH SCH ×4 (06:00→22:14)
--- NOTE | 2018-08-26 07:16 | SOAPPROG ---
SOAP Progress Note Assessment/Plan: Assessment: Schizoaffective Disorder, Bipolar Type, Cannabis Use Disorder, Severe, Nicotine Dependence, Medication non-adherence (KRUSE). No improvement noted (see subjective/objective note). Patient is not safe to discharge at this time as patient continues to exhibit signs of psychosis (notably delusions), and express psychosis symptoms. Patient requires continued inpatient care because of current psychosis, and requires inpatient level of care to stabilize in order to no longer be gravely disabled due to mental illness. Patient exhibits persistent inability to perform essential function due to psychotic condition. Patient is unable to test reality, poor insight into current condition, and poor judgement. Patient refusing needed medications (KRUSE). Patients support system has inability to manage functional impairment at lower level of care. Patient could benefit from continued inpatient hospitalization for crisis stabilization, safety, and medication evaluation. Plan: 1. Psychotropic medications: Continue current medications. 2. Review with patient informed consent and recommendations for psychotropic medication treatment listed below 3. Labs: no additional labs at this time 4. Therapy: continue milieu and group therapy 5. Further investigation including gathering information from patients relatives and review of past case records to inform treatment plan. 6. Safety/Wellness plan and follow-up outpatient appointments to be established prior to discharge. Next steps are for patient to meet with childcare center administrator to plan a safe discharge plan and establish outpatient services for ongoing treatment. 7. Confer with inpatient treatment team regarding treatment plan. 8. Psychosocial stressors addressed through case briefer. 9. Legal status: [facility] 10. Consider discharge tomorrow if patient is in stable condition, safe, and has a safe discharge plan. 11. Substance abuse interventions: THC PSYCHOTROPIC MEDICATION TREATMENT INFORMED CONSENT and RECOMMENDATIONS: Review nature of condition, diagnosis, and prognosis. Review nature and purpose of psychotropic medication treatment. Review type of psychotropic medications being ordered. Review risk and benefits of psychotropic medication treatment. Review probable length of time patient will need to take medications. Review risk and benefits of not undergoing psychotropic medication treatment. Review alternative treatments to psychotropic medications. Review psychotropic medications contraindications, drug-drug interactions, side effects, and importance of reporting any side effects to a psychiatric provider or nurse during inpatient hospitalization, and upon discharge to patients psychiatric outpatient provider, primary care provider, or other health healthcare insurance sales agent. Review importance of asking a nurse, psychiatric provider, or primary care provider any questions or problems concerning the psychotropic medications. Verify patient understands the information that has been provided, and understands, accepts, and agrees to psychotropic medications. Review patients safety plan and importance of patient to report to staff while hospitalized if patient is ever a danger to self/others, or unable to care for self, and upon discharge, the importance for patient to contact [facility] or [facility], or go to the nearest emergency room, if patient is ever a danger to self/others, or unable to care for self. Recommend that upon discharge patient establish medication management treatment with a psychiatric provider, establishes routine therapy appointments, and follow-up with primary care provider. Verify patient understands and agrees to these recommendations. 08/26/18 07:15 Subjective: Following up with patient for evaluation of psychosis and safety. Patient reports, "I would like some coffee first, and maybe some cannabis?" Patient reports taking medications as prescribed and reports no side effects. Patient agrees to continue Invega 6 mg po QD, and does not agree to KRUSE. Objective: Vital Signs Temp Pulse Resp BP Pulse Ox 37.0 C 105 H 18 111/66 95 08/26/18 06:00 08/26/18 06:00 08/26/18 06:00 08/26/18 06:00 08/26/18 06:00 MSE: The patient is an under-nourished male looking older chronological age. Attire is appropriate and dress is casual. Grooming status is appropriate. Ambulation is independent. Gait is normal and coordinated. Posture is normal and relaxed. Eye contact is appropriate. Motor activity is appropriate with purposeful, organized, coordinated movements; with no involuntary movements. Attitude is uncooperative. Patient appears disinterested and distractible and does not relate well to this interviewer. Language production is spontaneous. R/R/V normal. Articulation is clear. Patient reports mood as okay with constricted, flat and inappropriate and incongruent affect. Patients thought process is non-linear, illogical, and disorganized. Patient denies suicidal thoughts, denies homicidal ideation. Patient denies auditory, visual hallucinations. Patient reports delusions. Patient does not appear to be attending to internal stimuli. Patients attention and concentration are poor. Patient is oriented to person, place. Patients insight and judgment are poor. CONTINUITY OF CARE UPDATE: Dr. Morillo, [facility], agrees to transfer of [employer]. Will discuss with tx team. SUBSTANCE ABUSE BRIEF INTERVENTION: Brief intervention regarding the risks of THC abuse is provided to patient with goal to reduce the risk of harm that could result from the continued use of THC, with the general aim to investigate the problem, raise awareness of problem, develop a solution with the patient, recommend a specific change or activity, and motivate the patient toward change. Assess substance abuse behavior and give supportive advice about harm reduction, recommend a reduction in hazardous/at-risk consumption patterns, and facilitate referrals for additional specialized treatment with nursing care attendant. Intermediate goal is for the patient to quit and attend outpatient substance abuse treatment. Intervention focus on intermediate goals to allow for more immediate success in the treatment process to keep the patient motivated. Review following with patient: Cannabis use risks: Short- term use: impaired short-term memory, impaired motor coordination, altered judgement, in high doses paranoia and psychosis. Long-term use addiction, diminished life satisfaction and achievement, symptoms of chronic bronchitis, and increased risk of chronic psychosis disorders if predisposition to such disorders. In withdrawal anger, aggression irritability, anxiety and nervousness, decreased appetite or weight loss, restlessness, and sleep difficulties with strange dreams. OUTPATIENT SUBSTANCE ABUSE TREATMENT: Patient referred to outpatient provider and treatment for continued treatment related to substance abuse. - Time Spent With Patient Time Spent With Patient: 15 minutes, met with patient individually. - Pending Discharge Pending Discharge Within 24 Hours: No Pending Discharge Within 48 Hours: No ICD10 Worksheet Patient Problems: Problems Problem Status Onset Cannabis use disorder, severe, in controlled environment Acute Nicotine dependence Acute Patient non adherence Acute Schizoaffective disorder, bipolar type Chronic Cannabis withdrawal Acute Hyponatremia Acute Nonadherence to medication Acute Schizoaffective disorder Acute
[2018-08-26] MEDS: NICOTINE 21 MG/24 HR PATCH TD SCH ×2 (08:19→15:54)
[2018-08-26] MEDS: PALIPERIDONE 3 MG TAB.ER PO SCH (08:19)
--- NOTE | 2018-08-26 13:23 | ASMTCMCOM ---
CM Note CM Note Notes: Pt. requested to meet after he had coffee. Pt. reports feeling "good". Pt. stated he slept "thoughly, well rested". Pt. reports eating "way more than at home". Pt. reports "just started" his medications and is unsure of any side effects. Pt. reports he would "rather take pills". Pt. stated "not sure I trust them" when informed [facility] would be able to continue giving him KRUSE. Pt. reports "pills are better". Pt. stated he has "attend most of the groups". Pt. reports his goal is still the same, "improve credit score". Pt. denied SI, HI, AVH and paranoia. Pt. presents as alert, calm, bit guarded, dirty clothing, good eye contact, and cooperative. Staff report pt. sleeping 7.5 hours and being medication compliant. CC spoke with [facility], who stated pt's ACT therapist would be visiting the patient today. [facility] requested to know if [facility] will be pursuing COM for this patient. notified. Date Signed: 08/26/2018 01:22 PM Electronically Signed By:Jalyn Medina
[2018-08-26] MEDS: NICOTINE POLACRILEX 2 MG GUM B PRN (18:07)
[2018-08-27] MEDS: IPRATROPIUM/ALBUTEROL 4GM MDI IH SCH ×4 (07:01→20:24)
[2018-08-27] MEDS: NICOTINE 21 MG/24 HR PATCH TD SCH (07:51)
[2018-08-27] MEDS: PALIPERIDONE 3 MG TAB.ER PO SCH (08:32)
--- NOTE | 2018-08-27 15:49 | ASMTCMCOM ---
CM Note CM Note Notes: Pt. reports feeling "well". When asked how he slept, pt. stated "feel well rested". Pt. reports getting enough to eat and attending groups. Pt. reports "don't need them" about his medications, adding he "take them for other people". Pt. reports he only smokes THC, denied dabbing or other forms of THC. Pt. reports having no issues while on the unit. Pt. stated he really wants to smoke a cigarette and stated he is willing to be handcuffed to one officer, have another officer have the pt at gun point, and then walk off [facility] property so the patient can smoke one to six cigarettes, and then return to the unit. Pt. stated he is willing to go to [facility] or "[address]" to get his medications everyday. Pt. stated he only wants the pill form of Invega. Pt. denied SI, HI, AVH and paranoia. Pt. presents as alert, calm, good eye contact, friendly, rambling at times, dirty clothes, lacking insight, and cooperative. Staff report pt. sleeping 6 hours and being medication compliant. CC to reach out to [facility] for follow up appointments for pt. with his therapist and prescriber. [facility] spoke with CC on Wednesday requesting pt. receive the KRUSE of Invega, stating he has done best while on the KRUSE. notified on Wednesday. Date Signed: 08/27/2018 03:49 PM Electronically Signed By:Jalyn Medina
--- NOTE | 2018-08-27 16:25 | SOAPPROG ---
SOAP Progress Note Assessment/Plan: Assessment: 43 yo man with h/o schizoaffective disorder treated by P. He did not show up for his scheduled KRUSE of Invega Sustenna on 08/04/18. LSCW who did welfare check noted patient had not bathed since 03/27 and was living in disarray. Patient was also paranoid, delusional and disorganized. He was placed on M1 and admitted to DC IP. WEEKEND PLAN: 08/27/18 16:21 1. Patient continues to refuse IM Invega Sustenna. He has agreed to take PO Invega. 2. Patient is delusional and paranoid. He says he doesn't want to take KRUSE b/c he doesn't want to be "penetrated." 3. Patient denies need for psychotropic meds, states he only needs. "marijuana. " 4. STC Subjective: Patient says he wants to be "handcuffed to a fat merchant police" so he can be taken across the street to "smoke a cigarette." Even though he's agreed to take Invega PO while in hospital, he has no plans to comply with medications after discharge. He says the only medicine he needs is "marijuana." Objective: Vital Signs Temp Pulse Resp BP Pulse Ox 37.0 C 66 15 110/68 95 08/26/18 06:00 08/27/18 06:00 08/27/18 06:00 08/27/18 06:00 08/27/18 06:00 MSE: Affect: Labile Mood: "OK" TP: Disorganized, illogical TC: Denies any SI/ HI, still paranoid Insight/Judgment: Poor - Time Spent With Patient Time Spent With Patient: 15" - Pending Discharge Pending Discharge Within 24 Hours: No Pending Discharge Within 48 Hours: No ICD10 Worksheet Patient Problems: Problems Problem Status Onset Cannabis use disorder, severe, in controlled environment Acute Nicotine dependence Acute Patient non adherence Acute Schizoaffective disorder, bipolar type Chronic Cannabis withdrawal Acute Hyponatremia Acute Nonadherence to medication Acute Schizoaffective disorder Acute
[2018-08-28] MEDS: IPRATROPIUM/ALBUTEROL 4GM MDI IH SCH ×4 (06:24→19:44)
[2018-08-28] MEDS: NICOTINE 21 MG/24 HR PATCH TD SCH (07:37)
[2018-08-28] MEDS: PALIPERIDONE 3 MG TAB.ER PO SCH (07:37)
--- NOTE | 2018-08-28 17:11 | ASMTCMCOM ---
CM Note CM Note Notes: Pt. reports feeling "good". Pt. stated he took a shower and changed his clothes. CC offered to wash pt's other clothing, which pt. agreed to. Pt. reports feeling "well rested". Pt. reports getting enough to eat and "made most of the groups". Pt. reports no issues with his current medications. Pt. asked if he will be on the unit for another week. Pt. stated he would like to access some of his belongings, i.e. maps and notebooks. Pt. stated he does not want to quit smoking, adding he is "loyal to my brain". Pt. denied SI, HI, AVH and paranoia. Pt. presents as alert, calm, polite, groomed, good eye contact, friendly and cooperative. Staff report pt. sleeping 10.5 hours and being medication compliant. CC to reach out to [facility] for follow up appointments for pt. CC to speak with MD about if MD will pursue KRUSE for this patient. Date Signed: 08/28/2018 05:11 PM Electronically Signed By:Jalyn Medina
--- NOTE | 2018-08-28 19:25 | SOAPPROG ---
SOAP Progress Note Assessment/Plan: Assessment: 43 yo man with h/o schizoaffective disorder treated by P. He did not show up for his scheduled KRUSE of Invega Sustenna on 08/04/18. LSW who did welfare check noted patient had not bathed since 03/27 and was living in disarray. Patient was also paranoid, delusional and disorganized. He was placed on M1 and admitted to DC IP. WEEKEND PLAN: 08/27/18 16:21 1. Patient continues to refuse IM Invega Sustenna. He has agreed to take PO Invega. 2. Patient is delusional and paranoid. He says he doesn't want to take KRUSE b/c he doesn't want to be "penetrated." 3. Patient denies need for psychotropic meds, states he only needs. "marijuana. " 4. STC 08/28/18 19:21 1. Patient is taking Invega PO, but still refuses to consider KRUSE. 2. Patient took shower and changed clothes today. This is significant improvement since prior to admit, he reports not showering or bathing since 2017. 3. STC Subjective: Patient is kneeling on floor in dining area. He says he's "praying." He took shower and changed clothes this AM. Patient reportedly had not been bathing or attending to hygiene at home, so this is an improvement in his condition. He continues to refuse Invega Sustenna injection, but is taking PO Invega. Objective: Vital Signs Temp Pulse Resp BP Pulse Ox 36.8 C 75 16 109/76 95 08/28/18 06:00 08/28/18 06:00 08/28/18 06:00 08/28/18 06:00 08/28/18 06:00 MSE: Affect: Calm Mood: "OK" TP: More goal-directed TC: Denies any SI/HI, no longer requesting to go outside to smoke Insight/Judgment: Poor - Time Spent With Patient Time Spent With Patient: 15" - Pending Discharge Pending Discharge Within 24 Hours: No Pending Discharge Within 48 Hours: No ICD10 Worksheet Patient Problems: Problems Problem Status Onset Cannabis use disorder, severe, in controlled environment Acute Nicotine dependence Acute Patient non adherence Acute Schizoaffective disorder, bipolar type Chronic Cannabis withdrawal Acute Hyponatremia Acute Nonadherence to medication Acute Schizoaffective disorder Acute
[2018-08-29] MEDS: NICOTINE POLACRILEX 2 MG GUM B PRN (02:53)
[2018-08-29] MEDS: IPRATROPIUM/ALBUTEROL 4GM MDI IH SCH (06:13)
[2018-08-29 06:31] VITALS: BP 110/70
--- NOTE | 2018-08-29 06:52 | SOAPPROG ---
SOAP Progress Note Assessment/Plan: Assessment: Schizoaffective Disorder, Bipolar Type, Cannabis Use Disorder, Severe, Nicotine Dependence. Slight improvement over the weekend noted (see subjective/ objective note). Patient is not safe to discharge at this time as patient continues to exhibit signs of psychosis, and express psychosis symptoms. Patient requires continued inpatient care because of current psychosis, and requires inpatient level of care to stabilize in order to no longer be gravely disabled due to mental illness. Patients support system has inability to manage functional impairment at lower level of care. Patient could benefit from continued inpatient hospitalization for crisis stabilization, safety, and medication evaluation. Plan: 1. Psychotropic medications: Continue current medications. 2. Review with patient informed consent and recommendations for psychotropic medication treatment listed below 3. Labs: no additional labs at this time 4. Therapy: continue milieu and group therapy 5. Further investigation including gathering information from patients relatives and review of past case records to inform treatment plan. 6. Safety/Wellness plan and follow-up outpatient appointments to be established prior to discharge. Next steps are for patient to meet with home care provider to plan a safe discharge plan and establish outpatient services for ongoing treatment. 7. Confer with inpatient treatment team regarding treatment plan. 8. Psychosocial stressors addressed through lining caser. 9. Legal status: [facility] 10. Consider discharge tomorrow if patient is in stable condition, safe, and has a safe discharge plan. 11. Substance abuse interventions: THC PSYCHOTROPIC MEDICATION TREATMENT INFORMED CONSENT and RECOMMENDATIONS: Review nature of condition, diagnosis, and prognosis. Review nature and purpose of psychotropic medication treatment. Review type of psychotropic medications being ordered. Review risk and benefits of psychotropic medication treatment. Review probable length of time patient will need to take medications. Review risk and benefits of not undergoing psychotropic medication treatment. Review alternative treatments to psychotropic medications. Review psychotropic medications contraindications, drug-drug interactions, side effects, and importance of reporting any side effects to a psychiatric provider or nurse during inpatient hospitalization, and upon discharge to patients psychiatric outpatient provider, primary care provider, or other health director of medicare. Review importance of asking a nurse, psychiatric provider, or primary care provider any questions or problems concerning the psychotropic medications. Verify patient understands the information that has been provided, and understands, accepts, and agrees to psychotropic medications. Review patients safety plan and importance of patient to report to staff while hospitalized if patient is ever a danger to self/others, or unable to care for self, and upon discharge, the importance for patient to contact [facility] or [facility], or go to the nearest emergency room, if patient is ever a danger to self/others, or unable to care for self. Recommend that upon discharge patient establish medication management treatment with a psychiatric provider, establishes routine therapy appointments, and follow-up with primary care provider. Verify patient understands and agrees to these recommendations. 08/29/18 06:52 Subjective: Following up with patient for evaluation of psychosis and safety. Patient reports, "Is coffee ready yet?" Patient reports taking medications as prescribed and reports no side effects. Patient agrees to continue Invega 6 mg po QD, and does not agree to KRUSE. Patient reports plans to return to his apartment after discharge. Objective: Vital Signs Temp Pulse Resp BP Pulse Ox 36.7 C 69 14 110/70 97 08/29/18 06:00 08/29/18 06:00 08/29/18 06:00 08/29/18 06:00 08/29/18 06:00 MD REPORT FROM WEEKEND: Still has odd behaviors, but at least following routine and acting more appropriately. Still taking PO Invega. MSE: The patient is an well-nourished male looking older chronological age. Attire is appropriate and dress is casual. Grooming status is appropriate. Ambulation is independent. Gait is normal and coordinated. Posture is normal and relaxed. Eye contact is appropriate. Motor activity is appropriate with purposeful, organized, coordinated movements; with no involuntary movements. Attitude is fairly cooperative. Patient appears mostly disinterested and distractible and does not relate well to this interviewer. Language production is spontaneous. R/R/V normal. Articulation is clear. Patient reports mood as okay with congruent affect. Patients thought process is non-linear and illogical; disorganized and nonsensical. Patient denies suicidal thoughts, denies homicidal ideation. Patient denies auditory, visual hallucinations. Patient denies delusions. Patient does not appear to be attending to internal stimuli. Patients attention and concentration are poor. Patient is oriented to person, place. Patients insight and judgment are poor. SUBSTANCE ABUSE BRIEF INTERVENTION: Brief intervention regarding the risks of THC abuse is provided to patient with goal to reduce the risk of harm that could result from the continued use of THC, with the general aim to investigate the problem, raise awareness of problem, develop a solution with the patient, recommend a specific change or activity, and motivate the patient toward change. Assess substance abuse behavior and give supportive advice about harm reduction, recommend a reduction in hazardous/at-risk consumption patterns, and facilitate referrals for additional specialized treatment with gericare aide teacher. Intermediate goal is for the patient to quit and attend outpatient substance abuse treatment. Intervention focus on intermediate goals to allow for more immediate success in the treatment process to keep the patient motivated. Review following with patient: Cannabis use risks: Short- term use: impaired short-term memory, impaired motor coordination, altered judgement, in high doses paranoia and psychosis. Long-term use addiction, diminished life satisfaction and achievement, symptoms of chronic bronchitis, and increased risk of chronic psychosis disorders if predisposition to such disorders. In withdrawal anger, aggression irritability, anxiety and nervousness, decreased appetite or weight loss, restlessness, and sleep difficulties with strange dreams. OUTPATIENT SUBSTANCE ABUSE TREATMENT: Patient referred to outpatient provider and treatment for continued treatment related to substance abuse. - Time Spent With Patient Time Spent With Patient: 15 minutes, met with patient individually. - Pending Discharge Pending Discharge Within 24 Hours: No Pending Discharge Within 48 Hours: No ICD10 Worksheet Patient Problems: Problems Problem Status Onset Cannabis use disorder, severe, in controlled environment Acute Nicotine dependence Acute Patient non adherence Acute Schizoaffective disorder, bipolar type Chronic Cannabis withdrawal Acute Hyponatremia Acute Nonadherence to medication Acute Schizoaffective disorder Acute
[2018-08-29] MEDS: NICOTINE 21 MG/24 HR PATCH TD SCH (09:01)
[2018-08-29] MEDS: PALIPERIDONE 3 MG TAB.ER PO SCH (09:02)
--- NOTE | 2018-08-29 13:16 | ASMTBHDC ---
Notes Note: Notes: The patient participated in clinical treatment team rounds. He was engaged and appropriate. He discussed his discharge plan, medication tx, and outpatient care. The patient agreed to continuing with [facility]; maintains refusal of KRUSE. [facility] and [facility] providers discussed COM for KRUSE with decision to drop [facility] upon discharge. The patient plans to follow up with his landlord as well; due to suspected late payments. The patient reported that he is ready to leave; he stated "I'm just not sure if everyone around me is ready for me to leave." This parts data writer confirmed the following appointment for the patient who agreed to be remain unarmed during outpatient care. [facility] Romana Gomez and Rafat Mancera will meet client at 1 pm to pick him up from his apartment and bring him to the [address] [place] [address] location for a 1:30 appointment tomorrow, 08/30, with Dr. Morillo. Date Signed: 08/29/2018 12:06 PM Electronically Signed By:Deirdre Adames
--- NOTE | 2018-08-29 13:43 | BDS ---
[f rep st] BEHAVIORAL HEALTH DISCHARGE SUMMARY REASON FOR ADMISSION: From the ED note dated 08/19/2018, patient with history of schizoaffective disorder arrived to the emergency department on an M1 hold. EMS and [place] [employer] were accompanying patient and they reported patient having disorganized thought. Patient reported he was unsure if he ate that day or paid his rent. Patient reportedly had not showered since March. Patient reported he was not taking his medications. Patient was admitted involuntarily on an M1 hold due to being gravely disabled due to an underlying mental illness. Patient was admitted for safety, crisis stabilization, and medication management. ADMITTING DIAGNOSES: 1. Schizoaffective disorder, bipolar type. 2. Cannabis use disorder, severe. 3. Nonadherence to medication admission. ADMISSION PHYSICAL EXAM: Patient was seen on 08/20/2018 for history and physical consultation for inpatient psychiatric hospitalization and treatment. Patient was medically cleared for inpatient psychiatric hospitalization and treatment. For further details, please refer to consultation note dated 2018. ADMISSION LABS: 1. CBC within normal limits except white blood cells were elevated at 13.53, MPV low at 8.1, neutrophils were elevated at 75.5, eosinophils were low at 0.0, absolute neutrophils were elevated at 10.21, absolute monocytes were elevated at 0.97 and absolute eosinophils were low at 0.00. 2. Chemistry: BMP within normal limits except creatinine was low at 0.6. 3. Toxicology screen non-negative for THC, negative for all other substances screened and negative for ethyl alcohol. MAJOR PROCEDURES OR TESTS: None. HOSPITAL COURSE: The most prominent symptoms and behaviors while the patient was here were disorganized thought and behavior. Patient also reported delusions. At time of admission patient was socially withdrawn to his room. Treatment modalities utilized were milieu and group therapy. Invega 6 mg p.o. daily was started to target psychosis symptoms, was tolerated with no report of side effects and with good response. Patient has improved considerably and no longer meets criteria for inpatient psychiatric hospitalization and treatment. Patient has improved since admission, states to be in stable condition, feels safe to discharge and he contracts for safety. Patient's response to treatment was good. There were no adverse or unexpected results of treatment. Patient was safe throughout his stay, active in treatment, engaged in groups, and was appropriate with staff and other patients. Patient met with the treatment team prior to discharge to assess readiness to discharge and reviewed discharge plan. The treatment team consensus is the patient is in stable condition, has a safe discharge plan, and is ready to discharge today. CONDITION ON DISCHARGE: Patient is in stable condition and is no longer gravely disabled due to a mental illness. Patient is not a danger to himself or others. [facility] expressed concern for patient having "weapons /need to arm himself." With regard to this patient states, "I do not have any weapons, and I have no need to arm myself." Patient is no longer in need of inpatient level of care and can safely and effectively be treated within the community. Patient's level of risk at time of discharge is low. MENTAL STATUS EXAM: Patient is a well-nourished male looking older than stated chronological age. Attire is appropriate. Dress is casual. Grooming status is appropriate. Ambulation is independent. Gait is normal and coordinated. Posture is normal and relaxed. Eye contact is appropriate and adequate. Motor activity is appropriate with purposeful, organized, coordinated movements with no involuntary movements noted. Attitude is cooperative and friendly. Patient appears fairly attentive and relates well to this interviewer. Language production is spontaneous. Rate, rhythm and volume are normal. Articulation is clear. Patient reports mood as okay with congruent affect. Patient's thought process is linear and logical. No signs of formal thought disorder noted. Patient does not report suicidal or homicidal thoughts, ideas, or plans. Patient denies auditory or visual hallucinations. Patient denies delusions. Patient does not appear to be attending to internal stimuli. Patient is oriented to person, place, time. Patient's attention and concentration are fair. Patient's insight and judgment are fair. There is no evidence of gross cognitive dysfunction at any point during the interview, and no evidence of apparent dysfunction in recent or remote memory noted. Patient does not report undesirable side effects from current medications. DISCHARGE DIAGNOSES: 1. Schizoaffective disorder, bipolar type. 2. Cannabis use disorder, severe. CURRENT MEDICATIONS: After reviewing options, risks and benefits with the patient, patient agrees to continue Invega 6 mg p.o. daily. Patient requests prescription for this medication at time of discharge. Prescriptions are reviewed with the patient to ensure accuracy and patient understanding. Patient is provided a 30-day prescription. DISPOSITION: Patient left hospital independently and voluntarily and plans to return to his apartment in [place], [place]. FOLLOWUP: digital coordinator reports the appropriate outpatient follow-up services have been established and outpatient appointments have been scheduled. The patient received written instructions with times and dates of outpatient follow-up appointments. The following follow-up recommendations were provided to the patient at discharge: Continue psychotropic medications as prescribed and attend appointments as scheduled. Report any side effects to a psychiatric outpatient provider, a primary care provider, or other health care asst. Address any questions or problems concerning the psychotropic medications with a psychiatric outpatient provider, a primary care provider, or other health care asst. Contact [facility] or [facility], or go to the nearest emergency room, if you are ever a danger to yourself/others, or unable to care for yourself. As soon as possible, establish a routine medication management treatment with a psychiatric provider, establish routine therapy appointments, and follow-up with a primary care provider. LEGAL COURSE: Patient was admitted involuntarily for inpatient psychiatric hospitalization and treatment. Patient was then placed on a short-term certification. Patient discharged today independently and voluntarily, and short-term certification was transferred to [facility]. ATTITUDE AT TIME OF DISCHARGE: The patients attitude was positive at time of discharge, and patient reports looking forward to discharging today. The patient reports he feels safe to discharge, is not a danger to himself or others , and contracts for safety. [facility] expressed concern for patient having "weapons/need to arm himself." With regard to this patient states, "I do not have any weapons, and I have no need to arm myself." Patient states he will continue medications as prescribed, and establish medication management treatment with an outpatient provider after discharge. Patient reports he understands the information that has been provided to him, and he understands, accepts, and agrees to psychotropic medications. Patient describes internal protective factors as the coping skills he has learned while hospitalized here, and he plans to continue to practice these coping skills after discharge. LABS AND STUDIES: There were no pending labs or studies at time of discharge. ADVANCED DIRECTIVES: There were no advance directives on file, and patient was full code during this hospitalization. The following psychotropic medication treatment informed consent and recommendations were provided to the patient at time of discharge. Patient reports he understands, accepts, and agrees to the information that has been provided. PSYCHOTROPIC MEDICATION TREATMENT INFORMED CONSENT and RECOMMENDATIONS: Review nature of condition, diagnosis, and prognosis. Review nature and purpose of psychotropic medication treatment. Review type of psychotropic medications being prescribed. Review risk and benefits of psychotropic medication treatment. Review probable length of time will need to take medications. Review risk and benefits of not undergoing psychotropic medication treatment. Review alternative treatments to psychotropic medications. Review psychotropic medications contraindications, side effects, and importance of reporting any side effects to a psychiatric provider, primary care provider, or other health care asst. Review importance of asking a psychiatric provider or primary care provider any questions or problems concerning the psychotropic medications. Review safety plan and the importance to contact [facility] or [facility] , or go to the nearest emergency room, if ever a danger to yourself/others, or unable to care for yourself. Recommend upon discharge to establish routine medication management treatment with a psychiatric provider, establish routine therapy appointments, and follow-up with a primary care provider. Verify patient understands, accepts, and agrees to the information that has been provided. /[id number]
== END 2018-08-29 13:20 | disposition home or self-care (01) | DRG 885 ==
LOC: EDUNIT# → BBEH 22:25
PROVIDERS: ADMIT Psychiatry & Neurology Psychiatry; ATTEND Psychiatry & Neurology Psychiatry
DX: F25.0 Schizoaffective disorder, bipolar type (principal); F12.90 Cannabis use, unspecified, uncomplicated; E87.1 Hypo-osmolality and hyponatremia; J44.9 Chronic obstructive pulmonary disease, unspecified; Z91.19 Patient's noncompliance with other medical treatment and regimen; F17.210 Nicotine dependence, cigarettes, uncomplicated; Z59.0 Homelessness
CPT/HCPCS: 80305; G0480; J2060; J2426